=== PATIENT | male | born 1955 | race African-American/Black ===

== ENCOUNTER 2024-03-05 10:30 | Inpatient (IN) | payer MEDICARE, MEDICAID ==
[~2024-03-05] VITALS: Ht 149.9 cm; Wt 58.0 kg
[2024-03-05 11:00] VITALS: PULSE 66; RESP 18; O2SAT 99
[2024-03-05] MEDS: SODIUM CHLORIDE 0.9% 1,000 ML IV ONE (11:25)
[2024-03-05 11:35] LABS: Basophils # (auto) 0 10 ^3/uL (0-0.2); Basophils % (auto) 0.4 % (0.0-2.0); Eosinophils # (auto) 0 10 ^3/uL (0-0.8); Eosinophils % (auto) 0.2 % (0.0-7.0); Hematocrit 41.3 % (41.0-53.0); Hemoglobin 13.7 g/dL (13.5-17.5); Lymphocytes # (auto) 1.3 10 ^3/uL (0.4-5.4); Lymphocytes % (auto) 12.7 % (10.0-50.0); Mean Corpuscular Hemoglobin 26.6 pg (28.0-32.0); Mean Corpuscular Hgb Conc. 33.2 g/dL (32.0-36.0); Monocytes # (auto) 0.7 10 ^3/uL (0-1.3); Monocytes % (auto) 6.3 % (0.0-12.0); Neutrophils # (auto) 8.4 10 ^3/uL (1.6-8.6); Neutrophils % (auto) 80.4 % (37.0-80.0); Nucleated Red Blood Cells % 0.1 %; Red Blood Cells 5.17 10^6/uL (4.5-5.90); Red Cell Distribution Width 16.5 % (11.8-14.3); White Blood Cell 10.5 10^3/uL (4.4-10.8)
[2024-03-05 11:50] LABS: Alanine Aminotransferase 17 U/L (7-40); Alkaline Phosphatase 57 U/L (46-116); Anion Gap 7 (5-15); Aspartate Aminotransferase 15 U/L (13-40); BUN/Creatinine Ratio 16.9 (10.0-20.0); Blood Urea Nitrogen 14 mg/dL (9-23); Calcium 10.1 mg/dL (8.7-10.4); Carbon Dioxide 28 mmol/L (20-30); Chloride 101 mmol/L (98-107); Cholesterol 90 mg/dL (< 200); Glucose 103 mg/dL (74-106); HDL Cholesterol 37 mg/dL (40-59); LDL Cholesterol 42 mg/dL (< 100); Magnesium 1.5 mg/dL (1.6-2.6); Potassium 4.6 mmol/L (3.5-5.1); Sodium 136 mmol/L (136-145); Triglycerides 51 mg/dL (< 150)
[2024-03-05 11:51] LABS: Bilirubin, Total 0.3 mg/dL (0.2-1.0); Total Protein 6.2 g/dL (5.7-8.2)
[2024-03-05] MEDS: ENOXAPARIN SOD 60 MG/0.6 ML SYRINGE SC ONE (12:30)
[2024-03-05] MEDS ORDERED: MORPHINE SULFATE INJ 2 MG/ml SYRG IV PRN (13:45)
[2024-03-05] MEDS ORDERED: MORPHINE SULFATE 4 MG/ML SYR/VIAL IV PRN (13:45)
[2024-03-05] MEDS: MAGNESIUM SULFATE 1GM/100ML 100 ML IV SCH (13:45)
[2024-03-05] MEDS ORDERED: NITROGLYCERIN 0.4 MG SL TAB SL PRN ×2 (13:45)
[2024-03-05] MEDS ORDERED: ONDANSETRON HCL 4 MG/2 ML VIAL IV PRN ×2 (13:45→18:00)
[2024-03-05 14:53] LABS: Magnesium 1.5 mg/dL (1.6-2.6)
[2024-03-05 15:03] LABS: INR 1.13 (0.9-1.15); Partial Thromboplastin Time 28.8 SEC (24.5-34.5); Prothrombin Time 11.9 sec (9.3-11.8)
[2024-03-05 17:28] VITALS: BP 99/63; PULSE 66; RESP 18; TEMP 97.9; O2SAT 100
[2024-03-05] MEDS ORDERED: METF-370 PO (17:47)
[2024-03-05] MEDS ORDERED: LISI20TA56 PO (17:47)
[2024-03-05] MEDS ORDERED: METH-928 PO (17:47)
[2024-03-05] MEDS ORDERED: AMLO1TAB22 PO (17:47)
[2024-03-05] MEDS ORDERED: ATOR10TA52 PO (17:47)
[2024-03-05] MEDS ORDERED: ZOLP10TA6 PO (17:47)
[2024-03-05] MEDS ORDERED: LACT10SO3 PO (17:48)
[2024-03-05] MEDS ORDERED: GABA800T97 PO (17:58)
[2024-03-05] MEDS ORDERED: BACL20TA PO (17:58)
[2024-03-05] MEDS ORDERED: NAPROXEN 500 MG TAB PO SCH (18:00)
[2024-03-05] MEDS: NAPROXEN 500 MG TAB PO ONE (18:31)
[2024-03-05] MEDS ORDERED: MONT-8 PO (18:46)
[2024-03-05] MEDS ORDERED: GABA-1251 PO (18:46)
[2024-03-05] MEDS ORDERED: OMEP1CAP70 PO (18:46)
[2024-03-05] MEDS ORDERED: METF-371 PO (18:46)
[2024-03-05] MEDS ORDERED: CEPH250C2 PO (18:46)
[2024-03-05] MEDS ORDERED: ASPI-543 PO (18:46)
[2024-03-05] MEDS ORDERED: FER325T PO (18:46)
[2024-03-05 20:00] VITALS: PULSE 90; RESP 20; O2SAT 100
[2024-03-05] MEDS: BACLOFEN 10 MG TAB PO SCH (20:49)
[2024-03-05] MEDS: ATORVASTATIN 20 MG TAB PO SCH (20:49)
[2024-03-05] MEDS: MORPHINE SULFATE INJ 2 MG/ml SYRG IV PRN (20:54)
[2024-03-05 21:00] VITALS: BP 178/104; PULSE 61; RESP 18; TEMP 97.7; O2SAT 100
[2024-03-05] MEDS ORDERED: ENOXAPARIN SOD 60 MG/0.6 ML SYRINGE SC SCH (22:00)
[2024-03-06] VITALS (7 sets, daily range): BP systolic 101–180; BP diastolic 62–100; PULSE 60–84; RESP 16–20; TEMP 97.4–98.6; O2SAT 96–100
[2024-03-06] MEDS: ZOLPIDEM TARTRATE 5 MG TAB PO PRN (00:02)
[2024-03-06] MEDS: ACETAMINOPHEN 325 MG TAB PO PRN (00:09)
[2024-03-06 06:21] LABS: Basophils # (auto) 0.1 10 ^3/uL (0-0.2); Basophils % (auto) 0.5 % (0.0-2.0); Eosinophils # (auto) 0.1 10 ^3/uL (0-0.8); Eosinophils % (auto) 0.5 % (0.0-7.0); Hematocrit 43.3 % (41.0-53.0); Hemoglobin 14.1 g/dL (13.5-17.5); Lymphocytes # (auto) 2.3 10 ^3/uL (0.4-5.4); Lymphocytes % (auto) 20.6 % (10.0-50.0); Mean Corpuscular Hemoglobin 26.5 pg (28.0-32.0); Mean Corpuscular Hgb Conc. 32.6 g/dL (32.0-36.0); Mean Corpuscular Volume 81.2 fL (80.0-100.0); Monocytes # (auto) 0.5 10 ^3/uL (0-1.3); Monocytes % (auto) 4.8 % (0.0-12.0); Neutrophils # (auto) 8.1 10 ^3/uL (1.6-8.6); Neutrophils % (auto) 73.6 % (37.0-80.0); Nucleated Red Blood Cells % 0.1 %; Red Blood Cells 5.33 10^6/uL (4.5-5.90); Red Cell Distribution Width 16.1 % (11.8-14.3)
[2024-03-06 06:37] LABS: Alanine Aminotransferase 167 U/L (7-40); Albumin 4.4 g/dL (3.2-4.8); Alkaline Phosphatase 117 U/L (46-116); Anion Gap 5 (5-15); Aspartate Aminotransferase 197 U/L (13-40); BUN/Creatinine Ratio 16.1 (10.0-20.0); Blood Urea Nitrogen 9 mg/dL (9-23); Calcium 10.1 mg/dL (8.7-10.4); Carbon Dioxide 26 mmol/L (20-30); Chloride 101 mmol/L (98-107); Glucose 98 mg/dL (74-106); Potassium 4.4 mmol/L (3.5-5.1); Sodium 132 mmol/L (136-145)
[2024-03-06 06:38] LABS: Bilirubin, Total 0.4 mg/dL (0.2-1.0)
[2024-03-06] MEDS: ASPirin 81 mg TAB PO SCH (08:55)
[2024-03-06] MEDS: DOCUSATE SOD 100 MG CAP PO SCH (08:55)
[2024-03-06] MEDS: ENOXAPARIN SOD 30 MG/0.3 ML SYRINGE SC SCH (08:56)
[2024-03-06] MEDS: NAPROXEN 500 MG TAB PO SCH (08:56)
[2024-03-06] MEDS: GABAPENTIN 400 MG CAP PO SCH (14:44)
[2024-03-06] MEDS: LABETALOL HCL 20 MG/4 ML VL IV PRN (15:54)
[2024-03-06] MEDS: METOPROLOL TARTRATE 50 MG TAB PO SCH (20:58)
[2024-03-07] VITALS (8 sets, daily range): BP systolic 102–164; BP diastolic 64–98; PULSE 51–75; RESP 14–20; TEMP 97.8–99.1; O2SAT 92–100
[2024-03-07 07:50] LABS: Alanine Aminotransferase 337 U/L (7-40); Albumin 4.1 g/dL (3.2-4.8); Alkaline Phosphatase 133 U/L (46-116); Anion Gap 10 (5-15); Aspartate Aminotransferase 187 U/L (13-40); BUN/Creatinine Ratio 17.8 (10.0-20.0); Blood Urea Nitrogen 8 mg/dL (9-23); Calcium 9.8 mg/dL (8.7-10.4); Carbon Dioxide 20 mmol/L (20-30); Chloride 101 mmol/L (98-107); Glucose 91 mg/dL (74-106); Potassium 4.3 mmol/L (3.5-5.1); Sodium 131 mmol/L (136-145)
[2024-03-07 07:51] LABS: Bilirubin, Total 0.4 mg/dL (0.2-1.0); Total Protein 6.5 g/dL (5.7-8.2)
[2024-03-07] MEDS ORDERED: ZOLPIDEM TARTRATE 5 MG TAB PO PRN (13:15)
[2024-03-07] MEDS ORDERED: LACT10SO3 PO (14:08)
[2024-03-07] MEDS: KETOROLAC TROMETH 30 MG/ML 1ML VIAL IV ONE (14:51)
[2024-03-07] MEDS: [UNRECOGNIZED DRUG - OTHER] PO SCH (22:00)
[2024-03-07] MEDS: METHENAMINE HIPPURATE 1 GM PO SCH (22:00)
[2024-03-07] MEDS: LACTULOSE 20Gm/30ML SOLN PO SCH (22:46)
[2024-03-07] MEDS: ZOLPIDEM TARTRATE 5 MG TAB PO PRN (23:12)
[2024-03-08] VITALS (8 sets, daily range): BP systolic 0–162; BP diastolic 72–98; PULSE 50–78; RESP 15–20; TEMP 97.4–98.3; O2SAT 95–100
[2024-03-08 09:46] LABS: Hepatitis B Surface Antigen Negative (Negative)
[2024-03-08] MEDS: MONTELUKAST SODIUM 10 MG TAB PO SCH (10:07)
[2024-03-08 10:08] LABS: Hepatitis C Antibody Negative (Negative)
[2024-03-08 11:56] LABS: Alanine Aminotransferase 305 U/L (7-40); Albumin 3.9 g/dL (3.2-4.8); Alkaline Phosphatase 125 U/L (46-116); Anion Gap 4 (5-15); Aspartate Aminotransferase 105 U/L (13-40); Blood Urea Nitrogen 9 mg/dL (9-23); Calcium 9.8 mg/dL (8.7-10.4); Carbon Dioxide 26 mmol/L (20-30); Chloride 99 mmol/L (98-107); Glucose 154 mg/dL (74-106); Potassium 4.3 mmol/L (3.5-5.1); Sodium 129 mmol/L (136-145)
[2024-03-08 11:57] LABS: Bilirubin, Total 0.3 mg/dL (0.2-1.0); Total Protein 6.4 g/dL (5.7-8.2)
[2024-03-08] MEDS: FUROSEMIDE 20 MG TAB PO ONE (15:42)
[2024-03-08] MEDS ORDERED: GABA800T97 PO (16:39)
[2024-03-08] MEDS ORDERED: ALBU108A5 INH (16:43)
[2024-03-08 19:35] LABS: Urine Bacteria FEW /hpf (None Seen); Urine Blood TRACE /uL (Negative); Urine Clarity Turbid (Clear); Urine Color Colorless (Yellow); Urine Protein, UAD Negative (Negative); Urine Specific Gravity 1.003 (1.001-1.035); Urine Urobilinogen Normal (Negative); Urine WBC 51 /hpf (0 - 3)
[2024-03-08] MEDS: METOPROLOL TARTRATE 25 MG TAB PO SCH (22:42)
[2024-03-09] VITALS (9 sets, daily range): BP systolic 107–160; BP diastolic 50–91; PULSE 45–63; RESP 17–20; TEMP 97.1–98.4; O2SAT 95–100
[2024-03-09] MEDS ORDERED: LORazepam 2MG/ML-1ML VIAL IV ONE (11:45)
[2024-03-09] MEDS: traMADol HCL 50 MG TAB PO PRN (16:24)
[2024-03-09] MEDS: DOCUSATE SOD 100 MG CAP PO SCH (22:13)
[2024-03-10] VITALS (8 sets, daily range): BP systolic 100–160; BP diastolic 52–87; PULSE 43–61; RESP 17–20; TEMP 97.6–98.8; O2SAT 96–100
[2024-03-10 07:01] LABS: Basophils # (auto) 0 10 ^3/uL (0-0.2); Basophils % (auto) 0.4 % (0.0-2.0); Eosinophils # (auto) 0.1 10 ^3/uL (0-0.8); Eosinophils % (auto) 1.8 % (0.0-7.0); Hematocrit 36.9 % (41.0-53.0); Hemoglobin 12.1 g/dL (13.5-17.5); Lymphocytes # (auto) 1.9 10 ^3/uL (0.4-5.4); Lymphocytes % (auto) 36.5 % (10.0-50.0); Mean Corpuscular Hemoglobin 26.5 pg (28.0-32.0); Mean Corpuscular Hgb Conc. 32.7 g/dL (32.0-36.0); Monocytes # (auto) 0.6 10 ^3/uL (0-1.3); Monocytes % (auto) 11.1 % (0.0-12.0); Neutrophils # (auto) 2.6 10 ^3/uL (1.6-8.6); Neutrophils % (auto) 50.2 % (37.0-80.0); Nucleated Red Blood Cells % 0.1 %; Red Blood Cells 4.56 10^6/uL (4.5-5.90); Red Cell Distribution Width 15.8 % (11.8-14.3); White Blood Cell 5.1 10^3/uL (4.4-10.8)
[2024-03-10 07:34] LABS: Alanine Aminotransferase 480 U/L (7-40); Alkaline Phosphatase 210 U/L (46-116); Anion Gap 8 (5-15); BUN/Creatinine Ratio 12.2 (10.0-20.0); Blood Urea Nitrogen 5 mg/dL (9-23); Calcium 9.9 mg/dL (8.7-10.4); Carbon Dioxide 25 mmol/L (20-30); Chloride 100 mmol/L (98-107); Glucose 90 mg/dL (74-106); Potassium 4.2 mmol/L (3.5-5.1); Sodium 133 mmol/L (136-145)
[2024-03-10 07:35] LABS: Aspartate Aminotransferase 441 U/L (13-40); Bilirubin, Total 0.2 mg/dL (0.2-1.0); Total Protein 6.8 g/dL (5.7-8.2)
[2024-03-10] MEDS: cefTRIAXone 1GM/50ML D5W 50 ML IV SCH (09:20)
[2024-03-10] MEDS: LISINOPRIL 5 MG TAB PO SCH (09:22)
[2024-03-10] MEDS: HYDROcodone-ACET 5/325MG TAB PO ONE (14:16)
[2024-03-11] VITALS (9 sets, daily range): BP systolic 120–181; BP diastolic 11–93; PULSE 40–77; RESP 18–20; TEMP 97.8–98.8; O2SAT 95–100
[2024-03-11] MEDS ORDERED: CIP500T PO (13:35)
[2024-03-12] VITALS (8 sets, daily range): BP systolic 99–159; BP diastolic 57–85; PULSE 44–109; RESP 15–18; TEMP 36.6; O2SAT 95–100
[2024-03-12] MEDS: hydrALAZINE HCL 20 MG/ML VL IV PRN (00:47)
[2024-03-12 15:11] LABS: Chloride 96 mmol/L (98-107); Potassium 4.1 mmol/L (3.5-5.1); Sodium 130 mmol/L (136-145)
[2024-03-12 15:14] LABS: Anion Gap 6 (5-15); Calcium 10.1 mg/dL (8.7-10.4); Carbon Dioxide 28 mmol/L (20-30)
[2024-03-12 15:19] LABS: Alkaline Phosphatase 159 U/L (46-116); BUN/Creatinine Ratio 14.1 (10.0-20.0); Blood Urea Nitrogen 9 mg/dL (9-23); Glucose 121 mg/dL (74-106)
[2024-03-12 15:21] LABS: Alanine Aminotransferase 224 U/L (7-40); Albumin 4.2 g/dL (3.2-4.8); Aspartate Aminotransferase 35 U/L (13-40); Bilirubin, Total 0.2 mg/dL (0.2-1.0); Creatine Kinase IFCC 39 U/L (46-171); Total Protein 7.2 g/dL (5.7-8.2)
== END 2024-03-12 18:10 | disposition home or self-care (01) | DRG 73 ==
LOC: EDBD 10:30 → ER 10:30 → TELE 13:45 → TELE-EAST 16:48
PROVIDERS: ADMIT Nurse Practitioner Family; ATTEND Internal Medicine
DX: G90.8 Other disorders of autonomic nervous system (principal); G82.50 Quadriplegia, unspecified; I21.A1 Myocardial infarction type 2; N39.0 Urinary tract infection, site not specified; J45.909 Unspecified asthma, uncomplicated; E78.5 Hyperlipidemia, unspecified; E83.42 Hypomagnesemia; G89.29 Other chronic pain; M62.830 Muscle spasm of back; R74.01 Elevation of levels of liver transaminase levels; R00.1 Bradycardia, unspecified; G95.89 Other specified diseases of spinal cord; I95.9 Hypotension, unspecified; G47.00 Insomnia, unspecified; M54.50 Low back pain, unspecified; I44.0 Atrioventricular block, first degree; Z88.2 Allergy status to sulfonamides; Z79.899 Other long term (current) drug therapy; Z89.511 Acquired absence of right leg below knee; Z89.512 Acquired absence of left leg below knee; Z93.3 Colostomy status; Z89.611 Acquired absence of right leg above knee; Z89.612 Acquired absence of left leg above knee; Z93.0 Tracheostomy status; Z79.84 Long term (current) use of oral hypoglycemic drugs
CPT/HCPCS: 36415; 70450; 70551; 71045; 74018; 74176; 76705; 80053; 80061; 81001; 82550; 82962; 83690; 83735; 84484; 85025; 85379; 85610; 85730; 86803; 87086; 87340; 93005; 93306; 93886; 95819; 96361; 96365; 96372; 97110; 97530; 99291; G0378; J1885

== ENCOUNTER 2024-05-09 23:19 | Inpatient (IN) | payer MEDICARE, MEDICAID ==
[~2024-05-09] VITALS: Ht 121.9 cm; Wt 50.1 kg
[~2024-05-09 23:19] MED LIST: ALBU108A5 INH; AMLO1TAB22 PO; ASPI-543 PO; ATOR10TA52 PO; BACL20TA PO; CEPH250C2 PO; CIP500T PO; FER325T PO; GABA800T97 PO; LACT10SO3 PO; LISI20TA56 PO; METF-371 PO; METH-928 PO; MONT-8 PO; OMEP1CAP70 PO; ZOLP10TA6 PO
[2024-05-09] MEDS: ROCURONIUM 10MG/ML 10ML VIAL IV ONE (23:30)
[2024-05-09] MEDS: ONDANSETRON HCL 4 MG/2 ML VIAL IV ONE (23:30)
[2024-05-09] MEDS ORDERED: NOREPINEPHRINE 8 MG/250ML KIT 250 ML IV SCH (23:30)
[2024-05-09] MEDS: ETOMIDATE (2MG/ML) 20ML VIAL IV ONE (23:38)
[2024-05-09] MEDS: MIDAZOLAM DRIP 50 mg/50mL 50 ML IV ONE (23:39)
[2024-05-09] MEDS: NOREPINEPHRINE 8 MG/250ML KIT 250 ML IV ONE (23:40)
[2024-05-09 23:45] LABS: Basophils # (auto) 0 10 ^3/uL (0-0.2); Basophils % (auto) 0.1 % (0.0-2.0); Eosinophils # (auto) 0.1 10 ^3/uL (0-0.8); Eosinophils % (auto) 1.1 % (0.0-7.0); Hematocrit 38.8 % (41.0-53.0); Hemoglobin 13.2 g/dL (13.5-17.5); Lymphocytes # (auto) 2.2 10 ^3/uL (0.4-5.4); Lymphocytes % (auto) 24.9 % (10.0-50.0); Mean Corpuscular Hgb Conc. 33.9 g/dL (32.0-36.0); Mean Corpuscular Volume 79.7 fL (80.0-100.0); Monocytes # (auto) 0.5 10 ^3/uL (0-1.3); Monocytes % (auto) 5.5 % (0.0-12.0); Neutrophils % (auto) 68.4 % (37.0-80.0); Nucleated Red Blood Cells % 0.1 %; Platelet Count (auto) 224 10^3/uL (140-450); Red Blood Cells 4.87 10^6/uL (4.5-5.90); Red Cell Distribution Width 17.1 % (11.8-14.3); White Blood Cell 8.8 10^3/uL (4.4-10.8)
[2024-05-09] MEDS: NOREPINEPHRINE 8 MG/250ML KIT 250 ML IV SCH (23:45)
[2024-05-09] MEDS: MIDAZOLAM DRIP 50 mg/50mL 50 ML IV SCH (23:45)
[2024-05-09] MEDS: CALCIUM GLUC 1,000mg/50ml-NS 100 ML IV ONE (23:47)
[2024-05-09] MEDS: ATROPINE SULF 0.5 MG/5ML SYR ONE (23:53)
[2024-05-09] MEDS: SODIUM CHLORIDE 0.9% 1,000 ML IV ONE (23:53)
[2024-05-09] MEDS: ATROPINE SULF 1 MG/10ml SYR IV ONE (23:53)
[2024-05-10] VITALS (49 sets, daily range): BP systolic 89–174; BP diastolic 56–90; PULSE 45–150; RESP 12–19; TEMP 98.1–101.3; O2SAT 93–100
[2024-05-10] MEDS: CALCIUM GLUC 1,000mg/50ml-NS 50 ML IV SCH
[2024-05-10 00:02] LABS: Alanine Aminotransferase 19 U/L (7-40); Albumin 3.9 g/dL (3.2-4.8); Alkaline Phosphatase 53 U/L (46-116); Anion Gap 6 (5-15); Aspartate Aminotransferase 13 U/L (13-40); BUN/Creatinine Ratio 17.3 (10.0-20.0); Bilirubin, Total 0.2 mg/dL (0.2-1.0); Blood Urea Nitrogen 26 mg/dL (9-23); Calcium 10.1 mg/dL (8.7-10.4); Carbon Dioxide 25 mmol/L (20-30); Chloride 105 mmol/L (98-107); Glucose 112 mg/dL (74-106); Lipase 63 U/L (12-53); Potassium 4.6 mmol/L (3.5-5.1); Sodium 136 mmol/L (136-145); Total Protein 6.5 g/dL (5.7-8.2)
[2024-05-10] MEDS ORDERED: NOREPINEPHRINE 8 MG/250ML KIT 250 ML IV SCH (00:15)
[2024-05-10] MEDS: CEFEPIME 2GM/50ML NS 50 ML IV ONE (00:15)
[2024-05-10] MEDS ORDERED: CALCIUM GLUC 1,000mg/50ml-NS 50 ML IV ONE (00:15)
[2024-05-10 01:04] LABS: Base Excess -2.7 mmol/L (-2.0-3.0)
[2024-05-10 02:54] LABS: Urine Bacteria FEW /hpf (None Seen); Urine Blood Negative /uL (Negative); Urine Clarity Turbid (Clear); Urine Color Light-Yellow (Yellow); Urine Mucus FEW (None Seen); Urine Protein, UAD TRACE (Negative); Urine Specific Gravity 1.013 (1.001-1.035); Urine Urobilinogen Normal (Negative); Urine WBC 191 /hpf (0 - 3); Urine WBC Clumps PRESENT /hpf (None Seen); Urine pH 5.5 (5.0-9.0)
[2024-05-10] MEDS: IOHEXOL 350 MG/ML 100ML IJ ONE (03:02)
[2024-05-10 03:04] LABS: Amphetamine Screen, Urine Neg (NEGATIVE); Barbiturate Scree,Urine Neg (NEGATIVE); Benzodiazephine Screen, Urine Pos (NEGATIVE); Cannabinoid Screen, Urine Neg (NEGATIVE); Cocaine Screen, Urine Neg (NEGATIVE); Opiate Scree,Urine Neg (NEGATIVE); Phencyclidine Screen, Urine Neg (NEGATIVE)
[2024-05-10] MEDS: DOPamine 1600MCG/ML D5W 250 ML IV ONE (04:15)
[2024-05-10] MEDS ORDERED: ONDANSETRON HCL 4 MG/2 ML VIAL IV PRN (06:00)
[2024-05-10] MEDS ORDERED: NITROGLYCERIN 0.4 MG SL TAB SL PRN (06:00)
[2024-05-10 06:46] LABS: Base Excess -0.4 mmol/L (-2.0-3.0)
[2024-05-10] MEDS: NOREPINEPHRINE 8 MG/250ML KIT 250 ML IV ONE (08:02)
[2024-05-10] MEDS: hydrALAZINE HCL 20 MG/ML VL IV ONE (08:02)
[2024-05-10] MEDS: hydrALAZINE HCL 20 MG/ML VL ONE (08:02)
[2024-05-10] MEDS: SODIUM BICARB 8.4% 50Meq/50ml SYR Vial IV ONE (08:03)
[2024-05-10] MEDS: NOREPINEPHRINE 8 MG/250ML KIT 250 ML IV SCH (08:15)
[2024-05-10 08:40] LABS: Chloride 107 mmol/L (98-107); Potassium 4.2 mmol/L (3.5-5.1); Sodium 142 mmol/L (136-145)
[2024-05-10 08:41] LABS: Anion Gap 10 (5-15); Calcium 10.1 mg/dL (8.7-10.4); Carbon Dioxide 25 mmol/L (20-30)
[2024-05-10 08:46] LABS: BUN/Creatinine Ratio 23.7 (10.0-20.0); Blood Urea Nitrogen 22 mg/dL (9-23); Glucose 151 mg/dL (74-106)
[2024-05-10] MEDS: cefTRIAXone 1GM/50ML D5W 50 ML IV SCH (09:12)
[2024-05-10] MEDS: ENOXAPARIN SOD 40 MG/0.4 ML SYRINGE SC SCH (10:10)
[2024-05-10] MEDS: ACETAMINOPHEN 650 mg PER 20.3 mL UD GT ONE (11:36)
[2024-05-10] MEDS: fentaNYL Drip 2500mCg/250mlNS 250 ML IV SCH (13:00)
[2024-05-10] MEDS ORDERED: VANCOMYCIN PER PHARMACY 0 MG IV SCH (13:00)
[2024-05-10] MEDS: VANCOMYCIN 1GM/250ML 200 ML IV ONE (13:33)
[2024-05-10] MEDS: SODIUM CHLORIDE 0.9% 1,000 ML IV SCH (13:49)
[2024-05-10] MEDS: MEROPENEM 1GM IVPB 50 ML IV ONE (14:03)
[2024-05-10] MEDS: MEROPENEM 1GM IVPB 50 ML IV SCH (14:43)
[2024-05-10] MEDS: ACETAMINOPHEN 650 mg PER 20.3 mL UD GT PRN (16:46)
[2024-05-10] MEDS: DOPamine 1600MCG/ML D5W 250 ML IV SCH (17:15)
[2024-05-10] MEDS: ACCU-CHEK COMFORT CURVE STRIP VI SCH (18:15)
[2024-05-10] MEDS: InsuLIN REG 1unit/0.01ml Soln (100units/ml) SC SCH (18:18)
[2024-05-10] MEDS ORDERED: ASPirin 81 mg TAB PO ONE (18:30)
[2024-05-10] MEDS ORDERED: ATORVASTATIN 20 MG TAB PO SCH (22:00)
[2024-05-11] VITALS (106 sets, daily range): BP systolic 85–181; BP diastolic 53–94; PULSE 48–112; RESP 17–20; TEMP 97.5–100.4; O2SAT 97–100
[2024-05-11 04:29] LABS: Basophils # (auto) 0 10 ^3/uL (0-0.2); Eosinophils # (auto) 0.1 10 ^3/uL (0-0.8); Eosinophils % (auto) 1.1 % (0.0-7.0); Lymphocytes # (auto) 1.6 10 ^3/uL (0.4-5.4); Monocytes # (auto) 0.6 10 ^3/uL (0-1.3); Neutrophils # (auto) 6.8 10 ^3/uL (1.6-8.6); White Blood Cell 9.1 10^3/uL (4.4-10.8)
[2024-05-11 04:32] LABS: Basophils % (auto) 0.2 % (0.0-2.0); Hematocrit 35.2 % (41.0-53.0); Hemoglobin 12.1 g/dL (13.5-17.5); Lymphocytes % (auto) 17.3 % (10.0-50.0); Mean Corpuscular Hemoglobin 27.1 pg (28.0-32.0); Mean Corpuscular Hgb Conc. 34.4 g/dL (32.0-36.0); Mean Corpuscular Volume 78.8 fL (80.0-100.0); Monocytes % (auto) 6.7 % (0.0-12.0); Neutrophils % (auto) 74.7 % (37.0-80.0); Platelet Count (auto) 245 10^3/uL (140-450); Red Blood Cells 4.46 10^6/uL (4.5-5.90); Red Cell Distribution Width 17.3 % (11.8-14.3)
[2024-05-11 04:33] LABS: Alanine Aminotransferase 17 U/L (7-40); Albumin 3.8 g/dL (3.2-4.8); Alkaline Phosphatase 47 U/L (46-116); Anion Gap 9 (5-15); Aspartate Aminotransferase 10 U/L (13-40); BUN/Creatinine Ratio 31.5 (10.0-20.0); Bilirubin, Total 0.5 mg/dL (0.2-1.0); Blood Urea Nitrogen 17 mg/dL (9-23); Calcium 9.5 mg/dL (8.7-10.4); Carbon Dioxide 24 mmol/L (20-30); Chloride 111 mmol/L (98-107); Glucose 100 mg/dL (74-106); Potassium 3.6 mmol/L (3.5-5.1); Sodium 144 mmol/L (136-145); Total Protein 6.3 g/dL (5.7-8.2)
[2024-05-11 04:42] LABS: INR 1.11 (0.9-1.15); Partial Thromboplastin Time 33.4 SEC (24.5-34.5); Prothrombin Time 11.7 sec (9.3-11.8)
[2024-05-11 07:43] LABS: Base Excess -1.2 mmol/L (-2.0-3.0)
[2024-05-11] MEDS ORDERED: GABA-1250 PO (09:22)
[2024-05-11] MEDS ORDERED: METF-370 PO (09:23)
[2024-05-11] MEDS ORDERED: ASPirin 81 mg TAB PO SCH (10:00)
[2024-05-11] MEDS: PANTOPRAZOLE 40 MG/10 ML VIAL INJ IV SCH (10:01)
[2024-05-11] MEDS ORDERED: VANCOMYCIN 1GM/250ML 200 ML IV SCH (11:00)
[2024-05-11] MEDS: VANCOMYCIN 750mg/150ml 150 ML IV SCH (13:05)
[2024-05-11] MEDS: ALBUTEROL SULF 2.5 MG/0.5ML(0.5%) NEB SOLN NEB PRN (20:14)
[2024-05-11 21:32] LABS: % Iron Saturation 12.7 % (20-55)
[2024-05-12] VITALS (107 sets, daily range): BP systolic 78–194; BP diastolic 46–125; PULSE 55–123; RESP 18–33; TEMP 97.7–99.7; O2SAT 91–100
[2024-05-12 03:52] LABS: Basophils # (auto) 0 10 ^3/uL (0-0.2); Basophils % (auto) 0.3 % (0.0-2.0); Eosinophils # (auto) 0.2 10 ^3/uL (0-0.8); Hemoglobin 11.6 g/dL (13.5-17.5); Monocytes # (auto) 0.4 10 ^3/uL (0-1.3); White Blood Cell 6.3 10^3/uL (4.4-10.8)
[2024-05-12 03:57] LABS: Eosinophils % (auto) 2.5 % (0.0-7.0); Hematocrit 34.4 % (41.0-53.0); Lymphocytes # (auto) 1.7 10 ^3/uL (0.4-5.4); Lymphocytes % (auto) 26.6 % (10.0-50.0); Mean Corpuscular Hemoglobin 26.8 pg (28.0-32.0); Mean Corpuscular Hgb Conc. 33.8 g/dL (32.0-36.0); Mean Corpuscular Volume 79.3 fL (80.0-100.0); Monocytes % (auto) 5.9 % (0.0-12.0); Neutrophils # (auto) 4.1 10 ^3/uL (1.6-8.6); Neutrophils % (auto) 64.7 % (37.0-80.0); Platelet Count (auto) 218 10^3/uL (140-450); Red Blood Cells 4.33 10^6/uL (4.5-5.90); Red Cell Distribution Width 16.5 % (11.8-14.3)
[2024-05-12 04:02] LABS: Chloride 112 mmol/L (98-107); Potassium 3.7 mmol/L (3.5-5.1); Sodium 144 mmol/L (136-145)
[2024-05-12 04:03] LABS: Anion Gap 9 (5-15); Calcium 9.6 mg/dL (8.7-10.4); Carbon Dioxide 23 mmol/L (20-30)
[2024-05-12 04:08] LABS: Glucose 64 mg/dL (74-106)
[2024-05-12 04:09] LABS: BUN/Creatinine Ratio 28.9 (10.0-20.0); Blood Urea Nitrogen 13 mg/dL (9-23); Magnesium 1.6 mg/dL (1.6-2.6)
[2024-05-12 04:11] LABS: Phosphorus 2.7 mg/dL (2.4-5.1)
[2024-05-12] MEDS: DEXTROSE (50%) 50ML SYRG IV PRN (05:28)
[2024-05-12] MEDS: MAGNESIUM SULFATE 1GM/100ML 100 ML IV SCH (07:35)
[2024-05-12] MEDS ORDERED: MAGNESIUM SULFATE 1GM/100ML 100 ML IV SCH (08:00)
[2024-05-12 09:51] LABS: Base Excess -3.4 mmol/L (-2.0-3.0)
[2024-05-12 09:56] LABS: Base Excess -1.9 mmol/L (-2.0-3.0)
[2024-05-12] MEDS: Jevity 1.2 Cal/Fiber 1 Liter GT SCH (10:59)
[2024-05-12] MEDS: FUROSEMIDE 20 MG/2 ML VIAL IV ONE (12:00)
[2024-05-13] VITALS (80 sets, daily range): BP systolic 99–208; BP diastolic 52–122; PULSE 56–124; RESP 10–28; TEMP 98.4–100.4; O2SAT 96–100
[2024-05-13 00:53] LABS: Chloride 112 mmol/L (98-107); Potassium 4.2 mmol/L (3.5-5.1); Sodium 143 mmol/L (136-145)
[2024-05-13 00:54] LABS: Anion Gap 3 (5-15); Calcium 9.3 mg/dL (8.7-10.4); Carbon Dioxide 28 mmol/L (20-30)
[2024-05-13 00:59] LABS: BUN/Creatinine Ratio 23.5 (10.0-20.0); Blood Urea Nitrogen 12 mg/dL (9-23); Glucose 121 mg/dL (74-106)
[2024-05-13 04:20] LABS: Basophils # (auto) 0 10 ^3/uL (0-0.2); Eosinophils # (auto) 0.2 10 ^3/uL (0-0.8); Eosinophils % (auto) 3.3 % (0.0-7.0); Lymphocytes % (auto) 20.9 % (10.0-50.0); Monocytes # (auto) 0.5 10 ^3/uL (0-1.3); Monocytes % (auto) 6.9 % (0.0-12.0); Neutrophils # (auto) 5.1 10 ^3/uL (1.6-8.6)
[2024-05-13 04:24] LABS: Basophils % (auto) 0.2 % (0.0-2.0); Hematocrit 32.3 % (41.0-53.0); Hemoglobin 11.1 g/dL (13.5-17.5); Lymphocytes # (auto) 1.6 10 ^3/uL (0.4-5.4); Mean Corpuscular Hemoglobin 27.3 pg (28.0-32.0); Mean Corpuscular Hgb Conc. 34.3 g/dL (32.0-36.0); Mean Corpuscular Volume 79.6 fL (80.0-100.0); Neutrophils % (auto) 68.7 % (37.0-80.0); Platelet Count (auto) 217 10^3/uL (140-450); Red Blood Cells 4.06 10^6/uL (4.5-5.90); Red Cell Distribution Width 17.4 % (11.8-14.3); White Blood Cell 7.5 10^3/uL (4.4-10.8)
[2024-05-13 04:34] LABS: Anion Gap 4 (5-15); Carbon Dioxide 26 mmol/L (20-30); Chloride 113 mmol/L (98-107); Potassium 4.1 mmol/L (3.5-5.1); Sodium 143 mmol/L (136-145)
[2024-05-13 04:35] LABS: Calcium 9.5 mg/dL (8.7-10.4)
[2024-05-13 04:40] LABS: Glucose 96 mg/dL (74-106)
[2024-05-13 04:41] LABS: BUN/Creatinine Ratio 25.5 (10.0-20.0); Blood Urea Nitrogen 13 mg/dL (9-23); Magnesium 1.9 mg/dL (1.6-2.6)
[2024-05-13 04:43] LABS: Phosphorus 2.8 mg/dL (2.4-5.1)
[2024-05-13] MEDS: hydrALAZINE HCL 20 MG/ML VL IV PRN (05:39)
[2024-05-13 08:21] LABS: Base Excess -3.9 mmol/L (-2.0-3.0)
[2024-05-13] MEDS: LORazepam 2MG/ML-1ML VIAL IV ONE (09:31)
[2024-05-13] MEDS ORDERED: LABETALOL HCL 20 MG/4 ML VL IV PRN (10:15)
[2024-05-13] MEDS: LABETALOL HCL 20 MG/4 ML VL IV PRN (10:28)
[2024-05-13] MEDS: FUROSEMIDE 20 MG/2 ML VIAL IV ONE (13:07)
[2024-05-13] MEDS ORDERED: MAGNESIUM SULFATE 1GM/100ML 100 ML IV ONE (13:30)
[2024-05-13] MEDS ORDERED: AMIODARONE BOLUS KIT 100 ML IV ONE (13:30)
[2024-05-13] MEDS ORDERED: AMIODARONE 450mg/250ml AE 250 ML IV SCH ×2 (13:45→19:45)
[2024-05-13] MEDS: ALBUTEROL SULF 2.5 MG/0.5ML(0.5%) NEB SOLN NEB PRN (16:39)
[2024-05-13] MEDS: ACETAMINOPHEN 650 mg PER 20.3 mL UD GT PRN (22:21)
[2024-05-13] MEDS: MELATONIN 5 MG TAB PO ONE (22:21)
[2024-05-13] MEDS: BACLOFEN 10 MG TAB PO PRN (22:21)
[2024-05-14] VITALS (42 sets, daily range): BP systolic 89–199; BP diastolic 48–137; PULSE 68–163; RESP 11–37; TEMP 98.8–103.2; O2SAT 95–100
[2024-05-14 03:42] LABS: Base Excess -2.8 mmol/L (-2.0-3.0)
[2024-05-14 04:37] LABS: Basophils # (auto) 0 10 ^3/uL (0-0.2); Basophils % (auto) 0.3 % (0.0-2.0); Eosinophils # (auto) 0 10 ^3/uL (0-0.8); Eosinophils % (auto) 0.3 % (0.0-7.0); Lymphocytes # (auto) 0.8 10 ^3/uL (0.4-5.4); Monocytes # (auto) 0.5 10 ^3/uL (0-1.3); Neutrophils # (auto) 7.2 10 ^3/uL (1.6-8.6); Red Blood Cells 4.37 10^6/uL (4.5-5.90)
[2024-05-14 04:40] LABS: Hematocrit 34.6 % (41.0-53.0); Hemoglobin 11.5 g/dL (13.5-17.5); Lymphocytes % (auto) 9.4 % (10.0-50.0); Mean Corpuscular Hemoglobin 26.3 pg (28.0-32.0); Mean Corpuscular Hgb Conc. 33.3 g/dL (32.0-36.0); Mean Corpuscular Volume 79.1 fL (80.0-100.0); Monocytes % (auto) 5.6 % (0.0-12.0); Neutrophils % (auto) 84.4 % (37.0-80.0); Platelet Count (auto) 240 10^3/uL (140-450); Red Cell Distribution Width 16.9 % (11.8-14.3); White Blood Cell 8.5 10^3/uL (4.4-10.8)
[2024-05-14 04:57] LABS: Alanine Aminotransferase 208 U/L (7-40); Alkaline Phosphatase 130 U/L (46-116); Anion Gap 10 (5-15); BUN/Creatinine Ratio 21.1 (10.0-20.0); Blood Urea Nitrogen 12 mg/dL (9-23); Carbon Dioxide 24 mmol/L (20-31); Chloride 107 mmol/L (98-107); Glucose 104 mg/dL (74-106); Magnesium 1.7 mg/dL (1.6-2.6); Potassium 3.4 mmol/L (3.5-5.1); Sodium 141 mmol/L (136-145)
[2024-05-14 04:58] LABS: Albumin 4.1 g/dL (3.2-4.8); Aspartate Aminotransferase 74 U/L (13-40); Bilirubin, Total 0.5 mg/dL (0.2-1.0); Phosphorus 2.1 mg/dL (2.4-5.1); Total Protein 6.8 g/dL (5.7-8.2)
[2024-05-14] MEDS: POTASSIUM CHL 20MEQ/100ML 100 ML IV ONE (06:07)
[2024-05-14] MEDS: LEVALBUTEROL HCL 1.25 MG/3 ML NEB NEB SCH (06:09)
[2024-05-14] MEDS: IPRATROPIUM BROM 0.5 MG/2.5ML INH SOL NEB SCH (06:10)
[2024-05-14] MEDS: ACETYLCYSTEINE 20%(200MG/ML) SOL 4ML NEB SCH ×2 (06:10→14:55)
[2024-05-14] MEDS: MAGNESIUM SULFATE 1GM/100ML 100 ML IV ONE (08:42)
[2024-05-14 09:18] LABS: Base Excess -0.4 mmol/L (-2.0-3.0)
[2024-05-14] MEDS: FUROSEMIDE 20 MG/2 ML VIAL IV SCH ×2 (11:32→17:31)
[2024-05-14 11:37] LABS: Free T3 2.11 pg/mL (2.3-4.2)
[2024-05-14 12:06] LABS: Free T4 (Free Thyroxine) 1.18 ng/dL (0.89-1.76)
[2024-05-14] MEDS: SACUBITRIL-VALSARTAN 24mg/26mg TAB PO SCH (12:19)
[2024-05-14] MEDS: METOPROLOL TARTRATE 25 MG TAB PO SCH (12:20)
[2024-05-14] MEDS: ACETAMINOPHEN IV 1000 MG/100ML (10MG/ML) IV PRN (16:22)
[2024-05-14] MEDS ORDERED: MELATONIN 5 MG TAB PO ONE (22:00)
[2024-05-15] VITALS (42 sets, daily range): BP systolic 80–225; BP diastolic 45–144; PULSE 58–126; RESP 16–42; TEMP 98.7–100.8; O2SAT 84–100
[2024-05-15 07:21] LABS: Basophils # (auto) 0 10 ^3/uL (0-0.2); Basophils % (auto) 0.6 % (0.0-2.0); Eosinophils # (auto) 0.1 10 ^3/uL (0-0.8); Lymphocytes % (auto) 18.1 % (10.0-50.0); Mean Corpuscular Volume 78.6 fL (80.0-100.0); Monocytes # (auto) 0.5 10 ^3/uL (0-1.3); Nucleated Red Blood Cells % 0.1 %
[2024-05-15 07:23] LABS: Eosinophils % (auto) 1.5 % (0.0-7.0); Hematocrit 34.8 % (41.0-53.0); Hemoglobin 11.8 g/dL (13.5-17.5); Lymphocytes # (auto) 1.5 10 ^3/uL (0.4-5.4); Mean Corpuscular Hemoglobin 26.5 pg (28.0-32.0); Mean Corpuscular Hgb Conc. 33.7 g/dL (32.0-36.0); Monocytes % (auto) 5.7 % (0.0-12.0); Neutrophils # (auto) 6.2 10 ^3/uL (1.6-8.6); Neutrophils % (auto) 74.1 % (37.0-80.0); Platelet Count (auto) 231 10^3/uL (140-450); Red Blood Cells 4.44 10^6/uL (4.5-5.90); Red Cell Distribution Width 16.9 % (11.8-14.3); White Blood Cell 8.3 10^3/uL (4.4-10.8)
[2024-05-15 07:48] LABS: Alanine Aminotransferase 127 U/L (7-40); Alkaline Phosphatase 108 U/L (46-116); Anion Gap 10 (5-15); Aspartate Aminotransferase 39 U/L (13-40); BUN/Creatinine Ratio 18.2 (10.0-20.0); Blood Urea Nitrogen 8 mg/dL (9-23); Calcium 9.7 mg/dL (8.7-10.4); Carbon Dioxide 26 mmol/L (20-31); Chloride 103 mmol/L (98-107); Glucose 101 mg/dL (74-106); Magnesium 1.6 mg/dL (1.6-2.6); Potassium 3.4 mmol/L (3.5-5.1); Sodium 139 mmol/L (136-145)
[2024-05-15 07:49] LABS: Bilirubin, Total 0.6 mg/dL (0.2-1.0); Total Protein 6.7 g/dL (5.7-8.2)
[2024-05-15] MEDS: ACETAMINOPHEN 325 MG TAB PO PRN (09:24)
[2024-05-15] MEDS: VANCOMYCIN 750mg/150ml 150 ML IV SCH (09:32)
[2024-05-15] MEDS: MAGNESIUM SULFATE 1GM/100ML 100 ML IV SCH (18:03)
[2024-05-15] MEDS: MORPHINE SULFATE INJ 2 MG/ml SYRG IV PRN (19:53)
[2024-05-16] VITALS (40 sets, daily range): BP systolic 82–200; BP diastolic 50–102; PULSE 62–123; RESP 14–43; TEMP 97.9–99.3; O2SAT 97–100
[2024-05-16 05:59] LABS: Eosinophils # (auto) 0.1 10 ^3/uL (0-0.8); Hemoglobin 11.7 g/dL (13.5-17.5); Lymphocytes # (auto) 3.2 10 ^3/uL (0.4-5.4)
[2024-05-16 06:02] LABS: Basophils # (auto) 0 10 ^3/uL (0-0.2); Basophils % (auto) 0.2 % (0.0-2.0); Eosinophils % (auto) 0.6 % (0.0-7.0); Hematocrit 35.2 % (41.0-53.0); Lymphocytes % (auto) 17.4 % (10.0-50.0); Mean Corpuscular Hemoglobin 26.3 pg (28.0-32.0); Mean Corpuscular Hgb Conc. 33.3 g/dL (32.0-36.0); Monocytes # (auto) 1.2 10 ^3/uL (0-1.3); Monocytes % (auto) 6.6 % (0.0-12.0); Neutrophils # (auto) 13.6 10 ^3/uL (1.6-8.6); Neutrophils % (auto) 75.2 % (37.0-80.0); Platelet Count (auto) 312 10^3/uL (140-450); Red Blood Cells 4.46 10^6/uL (4.5-5.90); Red Cell Distribution Width 16.7 % (11.8-14.3); White Blood Cell 18.1 10^3/uL (4.4-10.8)
[2024-05-16 06:09] LABS: Chloride 99 mmol/L (98-107); Potassium 3.7 mmol/L (3.5-5.1); Sodium 135 mmol/L (136-145)
[2024-05-16 06:10] LABS: Anion Gap 11 (5-15); Carbon Dioxide 25 mmol/L (20-31)
[2024-05-16 06:15] LABS: BUN/Creatinine Ratio 24.1 (10.0-20.0); Blood Urea Nitrogen 13 mg/dL (9-23); Glucose 117 mg/dL (74-106)
[2024-05-16 16:40] LABS: Urine Bacteria FEW /hpf (None Seen); Urine Blood Negative /uL (Negative); Urine Clarity Clear (Clear); Urine Color Light-Yellow (Yellow); Urine Protein, UAD 1+ (Negative); Urine Specific Gravity 1.013 (1.001-1.035); Urine Urobilinogen Normal (Negative); Urine WBC 2 /hpf (0 - 3); Urine pH 5.5 (5.0-9.0)
[2024-05-16] MEDS: LACTULOSE 20Gm/30ML SOLN PO PRN (18:01)
[2024-05-17] VITALS (42 sets, daily range): BP systolic 37–175; BP diastolic 18–95; PULSE 57–121; RESP 16–99; TEMP 97.9–99.8; O2SAT 93–100
[2024-05-17 05:15] LABS: Basophils # (auto) 0 10 ^3/uL (0-0.2); Basophils % (auto) 0.3 % (0.0-2.0); Eosinophils # (auto) 0.1 10 ^3/uL (0-0.8); Hematocrit 31.9 % (41.0-53.0); Hemoglobin 10.6 g/dL (13.5-17.5); Mean Corpuscular Hgb Conc. 33.2 g/dL (32.0-36.0); Monocytes # (auto) 0.8 10 ^3/uL (0-1.3)
[2024-05-17 05:18] LABS: Lymphocytes # (auto) 1.2 10 ^3/uL (0.4-5.4); Mean Corpuscular Hemoglobin 26.2 pg (28.0-32.0); Mean Corpuscular Volume 78.9 fL (80.0-100.0); Monocytes % (auto) 7.2 % (0.0-12.0); Neutrophils # (auto) 8.6 10 ^3/uL (1.6-8.6); Neutrophils % (auto) 80.5 % (37.0-80.0); Platelet Count (auto) 209 10^3/uL (140-450); Red Blood Cells 4.04 10^6/uL (4.5-5.90); Red Cell Distribution Width 16.5 % (11.8-14.3); White Blood Cell 10.7 10^3/uL (4.4-10.8)
[2024-05-17 05:38] LABS: Alanine Aminotransferase 57 U/L (7-40); Albumin 3.9 g/dL (3.2-4.8); Alkaline Phosphatase 84 U/L (46-116); Anion Gap 9 (5-15); Aspartate Aminotransferase 16 U/L (13-40); BUN/Creatinine Ratio 17.6 (10.0-20.0); Bilirubin, Total 0.5 mg/dL (0.2-1.0); Blood Urea Nitrogen 9 mg/dL (9-23); Calcium 9.6 mg/dL (8.7-10.4); Carbon Dioxide 28 mmol/L (20-31); Chloride 101 mmol/L (98-107); Glucose 95 mg/dL (74-106); Magnesium 1.7 mg/dL (1.6-2.6); Potassium 3.2 mmol/L (3.5-5.1); Sodium 138 mmol/L (136-145); Total Protein 6.5 g/dL (5.7-8.2)
[2024-05-17] MEDS ORDERED: POTASSIUM CHL 20MEQ/100ML 100 ML IV SCH (07:00)
[2024-05-17] MEDS: POTASSIUM CHL 20MEQ/100ML 100 ML IV ONE ×2 (07:13→11:38)
[2024-05-17] MEDS: MORPHINE SULFATE INJ 2 MG/ml SYRG IV PRN (10:50)
[2024-05-17] MEDS: MAGNESIUM SULFATE 1GM/100ML 100 ML IV SCH (15:59)
[2024-05-17] MEDS: MEROPENEM 1GM IVPB 50 ML IV SCH (18:09)
[2024-05-17] MEDS: VANCOMYCIN 1GM/250ML 200 ML IV ONE (20:21)
[2024-05-17] MEDS: MELATONIN 5 MG TAB ONE (20:21)
[2024-05-17] MEDS: SACUBITRIL-VALSARTAN 24mg/26mg TAB PO SCH (22:00)
[2024-05-17] MEDS: LORazepam 2MG/ML-1ML VIAL IV PRN (23:28)
[2024-05-18] VITALS (87 sets, daily range): BP systolic 65–263; BP diastolic 31–139; PULSE 61–139; RESP 13–44; TEMP 98.5–99.3; O2SAT 93–100
[2024-05-18 07:14] LABS: Basophils # (auto) 0 10 ^3/uL (0-0.2); Basophils % (auto) 0.2 % (0.0-2.0); Eosinophils # (auto) 0.1 10 ^3/uL (0-0.8); Eosinophils % (auto) 1.3 % (0.0-7.0); Hematocrit 40.5 % (41.0-53.0); Hemoglobin 13.2 g/dL (13.5-17.5); Lymphocytes # (auto) 2.3 10 ^3/uL (0.4-5.4); Lymphocytes % (auto) 19.9 % (10.0-50.0); Mean Corpuscular Hemoglobin 26.4 pg (28.0-32.0); Mean Corpuscular Hgb Conc. 32.7 g/dL (32.0-36.0); Mean Corpuscular Volume 80.5 fL (80.0-100.0); Monocytes # (auto) 0.8 10 ^3/uL (0-1.3); Monocytes % (auto) 7.1 % (0.0-12.0); Neutrophils # (auto) 8.4 10 ^3/uL (1.6-8.6); Neutrophils % (auto) 71.5 % (37.0-80.0); Nucleated Red Blood Cells % 0.2 %; Platelet Count (auto) 346 10^3/uL (140-450); Red Blood Cells 5.03 10^6/uL (4.5-5.90); Red Cell Distribution Width 16.8 % (11.8-14.3); White Blood Cell 11.8 10^3/uL (4.4-10.8)
[2024-05-18] MEDS: PHENYLEPHRINE IV 250 ML IV SCH (07:14)
[2024-05-18 07:27] LABS: Base Excess 2.6 mmol/L (-2.0-3.0)
[2024-05-18] MEDS: PHENYLEPHRINE IV 250 ML IV ONE ×2 (07:27→10:35)
[2024-05-18 07:29] LABS: Alanine Aminotransferase 53 U/L (7-40); Albumin 4.7 g/dL (3.2-4.8); Alkaline Phosphatase 104 U/L (46-116); Anion Gap 11 (5-15); Aspartate Aminotransferase 23 U/L (13-40); BUN/Creatinine Ratio 15.7 (10.0-20.0); Bilirubin, Total 0.6 mg/dL (0.2-1.0); Blood Urea Nitrogen 8 mg/dL (9-23); Calcium 10.6 mg/dL (8.7-10.4); Carbon Dioxide 27 mmol/L (20-31); Chloride 100 mmol/L (98-107); Glucose 109 mg/dL (74-106); Phosphorus 2.4 mg/dL (2.4-5.1); Sodium 138 mmol/L (136-145); Total Protein 8.2 g/dL (5.7-8.2)
[2024-05-18] MEDS ORDERED: PHENYLEPHRINE IV 250 ML IV SCH (07:30)
[2024-05-18] MEDS: FUROSEMIDE 20 MG/2 ML VIAL IV SCH (10:00)
[2024-05-18] MEDS: NOREPINEPHRINE 8 MG/250ML KIT 250 ML IV SCH (11:00)
[2024-05-18] MEDS: NOREPINEPHRINE 8 MG/250ML KIT 250 ML IV ONE (11:43)
[2024-05-18] MEDS ORDERED: LABETALOL HCL 20 MG/4 ML VL IV PRN (15:15)
[2024-05-18] MEDS: SACUBITRIL-VALSARTAN 24mg/26mg TAB PO SCH (21:58)
[2024-05-18] MEDS: hydrALAZINE HCL 20 MG/ML VL IV PRN (23:07)
[2024-05-19] VITALS (85 sets, daily range): BP systolic 75–231; BP diastolic 35–126; PULSE 63–133; RESP 12–36; TEMP 97.6–99.1; O2SAT 84–100
[2024-05-19] MEDS: IPRATROPIUM BROM 0.5 MG/2.5ML INH SOL ONE (01:55)
[2024-05-19] MEDS: LEVALBUTEROL HCL 1.25 MG/3 ML NEB ONE (01:55)
[2024-05-19] MEDS ORDERED: ARTIFICIAL TEARS 15ml EACHEYE PRN (04:30)
[2024-05-19 05:10] LABS: Basophils # (auto) 0 10 ^3/uL (0-0.2); Basophils % (auto) 0.3 % (0.0-2.0); Eosinophils # (auto) 0.3 10 ^3/uL (0-0.8); Eosinophils % (auto) 3.5 % (0.0-7.0); Hematocrit 31.4 % (41.0-53.0); Hemoglobin 10.7 g/dL (13.5-17.5); Lymphocytes # (auto) 1.6 10 ^3/uL (0.4-5.4); Lymphocytes % (auto) 20.9 % (10.0-50.0); Mean Corpuscular Hgb Conc. 34.1 g/dL (32.0-36.0); Mean Corpuscular Volume 79.2 fL (80.0-100.0); Monocytes # (auto) 0.6 10 ^3/uL (0-1.3); Monocytes % (auto) 7.8 % (0.0-12.0); Neutrophils % (auto) 67.5 % (37.0-80.0); Nucleated Red Blood Cells % 0.1 %; Platelet Count (auto) 326 10^3/uL (140-450); Red Blood Cells 3.96 10^6/uL (4.5-5.90); Red Cell Distribution Width 16.3 % (11.8-14.3); White Blood Cell 7.4 10^3/uL (4.4-10.8)
[2024-05-19 05:24] LABS: Alanine Aminotransferase 37 U/L (7-40); Alkaline Phosphatase 77 U/L (46-116); Anion Gap 8 (5-15); Aspartate Aminotransferase 18 U/L (13-40); BUN/Creatinine Ratio 19.6 (10.0-20.0); Blood Urea Nitrogen 9 mg/dL (9-23); Calcium 10.1 mg/dL (8.7-10.4); Carbon Dioxide 26 mmol/L (20-31); Chloride 101 mmol/L (98-107); Glucose 117 mg/dL (74-106); Magnesium 1.6 mg/dL (1.6-2.6); Potassium 3.5 mmol/L (3.5-5.1); Sodium 135 mmol/L (136-145)
[2024-05-19 05:25] LABS: Bilirubin, Total 0.6 mg/dL (0.2-1.0); Total Protein 6.9 g/dL (5.7-8.2)
[2024-05-19] MEDS: hydrALAZINE HCL 20 MG/ML VL IV ONE (06:00)
[2024-05-19] MEDS: MAGNESIUM SULFATE 1GM/100ML 200 ML IV ONE (08:46)
[2024-05-19] MEDS: MAGNESIUM SULFATE 1GM/100ML 100 ML IV SCH (08:50)
[2024-05-19 08:53] LABS: Base Excess 3.5 mmol/L (-2.0-3.0)
[2024-05-19] MEDS: VANCOMYCIN 750mg/150ml 150 ML IV SCH (13:53)
[2024-05-19] MEDS: ERTAPENEM SOD INJ 1 GM in SODIUM CHL 0.9% 50 ML IV SCH (18:35)
[2024-05-20] VITALS (56 sets, daily range): BP systolic 80–203; BP diastolic 51–136; PULSE 63–123; RESP 10–37; TEMP 97.1–99.7; O2SAT 71–100
[2024-05-20 07:00] LABS: Anion Gap 8 (5-15); Carbon Dioxide 28 mmol/L (20-31); Chloride 102 mmol/L (98-107); Potassium 3.9 mmol/L (3.5-5.1); Sodium 138 mmol/L (136-145)
[2024-05-20 07:01] LABS: Calcium 9.9 mg/dL (8.7-10.4)
[2024-05-20 07:06] LABS: BUN/Creatinine Ratio 15.9 (10.0-20.0); Blood Urea Nitrogen 7 mg/dL (9-23); Glucose 115 mg/dL (74-106)
[2024-05-20 07:07] LABS: Magnesium 1.8 mg/dL (1.6-2.6)
[2024-05-20 09:02] LABS: Basophils # (auto) 0 10 ^3/uL (0-0.2); Basophils % (auto) 0.6 % (0.0-2.0); Eosinophils # (auto) 0.3 10 ^3/uL (0-0.8); Eosinophils % (auto) 4.1 % (0.0-7.0); Hematocrit 32.9 % (41.0-53.0); Hemoglobin 11.1 g/dL (13.5-17.5); Lymphocytes # (auto) 2.1 10 ^3/uL (0.4-5.4); Lymphocytes % (auto) 27.7 % (10.0-50.0); Mean Corpuscular Hemoglobin 26.9 pg (28.0-32.0); Mean Corpuscular Hgb Conc. 33.7 g/dL (32.0-36.0); Mean Corpuscular Volume 79.7 fL (80.0-100.0); Monocytes # (auto) 0.6 10 ^3/uL (0-1.3); Monocytes % (auto) 7.7 % (0.0-12.0); Neutrophils # (auto) 4.6 10 ^3/uL (1.6-8.6); Neutrophils % (auto) 59.9 % (37.0-80.0); Nucleated Red Blood Cells % 0.1 %; Platelet Count (auto) 407 10^3/uL (140-450); Red Blood Cells 4.12 10^6/uL (4.5-5.90); Red Cell Distribution Width 16.2 % (11.8-14.3); White Blood Cell 7.6 10^3/uL (4.4-10.8)
[2024-05-20] MEDS: DAPTOmycin 250 MG in SODIUM CHL 0.9% 50 ML IV SCH (15:02)
[2024-05-20] MEDS: VANCOMYCIN 750mg/150ml 150 ML IV SCH (18:17)
[2024-05-21] VITALS (26 sets, daily range): BP systolic 110–174; BP diastolic 71–115; PULSE 72–118; RESP 14–32; TEMP 97.9–98.6; O2SAT 90–100
[2024-05-21 06:16] LABS: Anion Gap 8 (5-15); Carbon Dioxide 29 mmol/L (20-31); Chloride 99 mmol/L (98-107); Potassium 3.9 mmol/L (3.5-5.1); Sodium 136 mmol/L (136-145)
[2024-05-21 06:17] LABS: Calcium 10.3 mg/dL (8.7-10.4)
[2024-05-21 06:22] LABS: BUN/Creatinine Ratio 18.2 (10.0-20.0); Blood Urea Nitrogen 8 mg/dL (9-23); Glucose 108 mg/dL (74-106)
[2024-05-21 06:23] LABS: Magnesium 1.7 mg/dL (1.6-2.6)
[2024-05-21 07:41] LABS: Basophils # (auto) 0.1 10 ^3/uL (0-0.2); Basophils % (auto) 0.7 % (0.0-2.0); Eosinophils # (auto) 0.4 10 ^3/uL (0-0.8)
[2024-05-21 07:45] LABS: Eosinophils % (auto) 4.1 % (0.0-7.0); Hematocrit 34.1 % (41.0-53.0); Hemoglobin 11.2 g/dL (13.5-17.5); Lymphocytes # (auto) 3.3 10 ^3/uL (0.4-5.4); Lymphocytes % (auto) 32.8 % (10.0-50.0); Mean Corpuscular Hemoglobin 26.5 pg (28.0-32.0); Mean Corpuscular Volume 80.4 fL (80.0-100.0); Monocytes # (auto) 0.6 10 ^3/uL (0-1.3); Monocytes % (auto) 6.2 % (0.0-12.0); Neutrophils # (auto) 5.6 10 ^3/uL (1.6-8.6); Neutrophils % (auto) 56.2 % (37.0-80.0); Nucleated Red Blood Cells % 0.3 %; Platelet Count (auto) 415 10^3/uL (140-450); Red Blood Cells 4.24 10^6/uL (4.5-5.90); Red Cell Distribution Width 16.7 % (11.8-14.3); White Blood Cell 9.9 10^3/uL (4.4-10.8)
[2024-05-21 09:21] LABS: Anisocytosis Slight; Platelet Estimate Adequate
[2024-05-21] MEDS: MAGNESIUM SULFATE 1GM/100ML 100 ML IV ONE (09:54)
[2024-05-21] MEDS ORDERED: DAPTOmycin 0 MG in SODIUM CHL 0.9% 50 ML IV SCH (10:00)
[2024-05-21] MEDS ORDERED: METO25TA5 PO (11:56)
== END 2024-05-21 16:43 | disposition home health service (06) | DRG 871 ==
LOC: EDBD 23:19 → ER 23:19 → TELE 05-10 05:54 → ICU WEST 05-10 14:42 → DOU IN ICU 05-15 15:23 → TELE-EAST 05-21 15:37
PROVIDERS: ADMIT Internal Medicine; ATTEND Internal Medicine
PROC: 5A1945Z Respiratory Ventilation, 24-96 Consecutive Hours (ICD-10-PCS; principal; 2024-05-10)
PROC: 0BH17EZ Insertion of Endotracheal Airway into Trachea, Via Natural or Artificial Opening (ICD-10-PCS; 2024-05-10)
PROC: 02HV33Z Insertion of Infusion Device into Superior Vena Cava, Percutaneous Approach (ICD-10-PCS; 2024-05-10)
PROC: 05HA33Z Insertion of Infusion Device into Left Brachial Vein, Percutaneous Approach (ICD-10-PCS; 2024-05-13)
PROC: B54NZZA Ultrasonography of Left Upper Extremity Veins, Guidance (ICD-10-PCS; 2024-05-13)
DX: A41.51 Sepsis due to Escherichia coli [E. coli] (principal); G92.8 Other toxic encephalopathy; J96.01 Acute respiratory failure with hypoxia; N17.0 Acute kidney failure with tubular necrosis; I50.23 Acute on chronic systolic (congestive) heart failure; R65.21 Severe sepsis with septic shock; I21.19 ST elevation (STEMI) myocardial infarction involving other coronary artery of inferior wall; R53.2 Functional quadriplegia; J15.69 Pneumonia due to other Gram-negative bacteria; J98.11 Atelectasis; N39.0 Urinary tract infection, site not specified; E11.9 Type 2 diabetes mellitus without complications; E66.9 Obesity, unspecified; I11.0 Hypertensive heart disease with heart failure; J45.909 Unspecified asthma, uncomplicated; K21.9 Gastro-esophageal reflux disease without esophagitis; E78.5 Hyperlipidemia, unspecified; D50.9 Iron deficiency anemia, unspecified; I48.0 Paroxysmal atrial fibrillation; Z68.33 Body mass index [BMI] 33.0-33.9, adult; Z89.612 Acquired absence of left leg above knee; Z89.611 Acquired absence of right leg above knee; Z93.3 Colostomy status; Z88.2 Allergy status to sulfonamides; Z91.018 Allergy to other foods; Z79.82 Long term (current) use of aspirin
CPT/HCPCS: 36415; 36600; 70450; 71045; 71250; 71260; 74177; 80048; 80053; 80202; 80307; 81001; 82140; 82565; 82728; 82805; 82962; 83036; 83540; 83550; 83605; 83690; 83735; 83880; 84100; 84439; 84443; 84481; 84484; 85025; 85610; 85730; 87040; 87070; 87077; 87081; 87086; 87088; 87186; 87205; 92507; 92610; 93005; 94003; 94640; 94667; 94668; 99291; 99292; G0378; J0131; J0461; J0692; J1335; J2185; J2470; J3480

== ENCOUNTER 2025-07-15 20:56 | Inpatient (IN) | payer MEDICARE, MEDICAID ==
[~2025-07-15] VITALS: Ht 175.3 cm; Wt 61.7 kg
[2025-07-15] MEDS: NOREPINEPHRINE 8 MG/250ML KIT 250 ML IV SCH
[~2025-07-15 20:56] MED LIST changes: -AMLO1TAB22 PO; -CEPH250C2 PO; -CIP500T PO; +GABA-1250 PO; -GABA800T97 PO; -LACT10SO3 PO; +METF-370 PO; -METF-371 PO; +METO25TA5 PO
[2025-07-15 21:15] VITALS: PULSE 49; RESP 6; O2SAT 98
--- NOTE | 2025-07-15 21:18 | ED.PDOC ---
Altered Mental Status HPI Comments 68-year-old male with past medical history of hypertension, type 2 diabetes mellitus, LA, asthma, quadriplegia, status post bilateral above-knee amputation, status post colostomy, chronic suprapubic catheter who presented to the ED due to altered level of consciousness. Apparently, family member the patient unresp onsive at bed since 3:00 p.m. the persistence of paramedics were called. On arrival patient was GCS 3, was given 0.5 Narcan and it went up to GCS 6. EKG done showed ST changes. Patient remained unresponsive to verbal stimuli upon arrival to the ER Chief Complaint: ALOC Time Seen by MD: 21:17 Primary Care Provider: UNKNOWN Reviewed Notes: Strategic Marketing Leader Notes Allergies: Coded Allergies: Jones (Verified Allergy, Unknown, 03/05/24) Sulfa Antibiotics (Verified Allergy, Unknown, 03/05/24) Tomato (Verified Allergy, Unknown, 03/05/24) Home Meds Active Scripts Metoprolol Tartrate (Metoprolol Tartrate) 25 Mg Tab, 1 TAB PO BID for 30 Days, #60 TAB 1 Refill Prov:DORA ENG RESIDENT 05/21/24 Reported Medications Metformin Hydrochloride (Metformin Hcl) 500 Mg Tab, 500 MG PO BID, TAB 05/11/24 Gabapentin (Gabapentin) 300 Mg Cap, 400 MG PO TID for 30 Days, MG 05/11/24 Albuterol Sulfate (Albuterol Sulfate Hfa) 108 Mcg/Act Aer, 2 PUFF INH Q4-6HR PRN 03/08/24 Aspirin (Aspir-Low) 81 Mg Tab, 81 MG PO DAILY for 30 Days, MG 03/05/24 Ferrous Sulfate (FERROUS SULFATE) 325 Mg Tb, 325 MG PO DAILY, TAB 03/05/24 Omeprazole (Omeprazole Dr) 20 Mg Cap, 1 CAP PO DAILY 03/05/24 Montelukast Sodium (MONTELUKAST SODIUM) 10 Mg Tab, 1 TAB PO DAILY 03/05/24 Baclofen (Baclofen) 20 Mg Tab, 1 TAB PO QID 03/05/24 Methenamine Hippurate (Methenamine Hippurate) 1 Gm Tab, 1 TAB PO BID 03/05/24 Atorvastatin Calcium (ATORVASTATIN CALCIUM) 10 Mg Tab, 1 TAB PO DAILY 03/05/24 Lisinopril (Lisinopril) 20 Mg Tab, 1 TAB PO DAILY 03/05/24 Zolpidem Tartrate (Zolpidem Tartrate) 10 Mg Tab, 1 TAB PO QHSP PRN for ANXIETY 03/05/24 Information Source: Emergency Med Personnel Past Medical History PAST MEDICAL HISTORY: Asthma, DM, GERD, HTN, LA Past Medical History (Other): Quadriplegia Surgical History: AKA (Bilateral) Surgical History (Other): Colostomy Family History Family History: Unobtainable Social History Smoker: Unobtainable Alcohol: Unobtainable Drugs: Unobtainable Lives In: Home Unable to Obtain due to: Altered Mental Status Physical Exam General Appearance: No Apparent Distress, Normal HEENT: Normal ENT Inspection, Pharynx Normal, TMs Normal Neck: Full Range of Motion, Non-Tender, Normal, Normal Inspection Respiratory: Chest Non-Tender, Lungs Clear, No Accessory Muscle Use, No Respiratory Distress, Normal Breath Sounds Cardiovascular: No Edema, No JVD, No Murmur, No Gallop, Normal Peripheral Pulse s, Regular Rate/Rhythm Breast Exam: Deferred Gastrointestinal: No Organomegaly, Non Tender, No Pulsatile Mass, Normal Bowel Sounds, Soft Genitalia: Deferred Pelvic: Deferred Rectal: Deferred Extremities: No calf tenderness, Normal capillary refill, Normal inspection, Normal range of motion, Non-tender, No pedal edema Musculoskeletal : Apperance: Normal Neurologic: Alert, change booth attendant II-XII nml as Tested, No Motor Deficits, Normal Affect, Normal Mood, No Sensory Deficits Cerebellar Function: Normal Reflexes: Normal Skin: Dry, Normal Color, Warm Lymphatic: No Adenopathy EKG EKG : Pulse Rate (adult): 56 Cardiac Rhythm: NSR Was a procedure done? Was a procedure done?: Yes Sedation Sedation?: No Central Line Recorder of insertion practice: Observer Occupation of forklift picker: Attending Physician Indication: Volume resuscitation, Inability to obtain IV, Suspected infection Room prepared for procedure: Yes Rf Technician performed hand hygien: Yes Maximal sterile barrier precau: Mask/Eye shield, Sterile gown, Cap, Sterlie gloves, Large sterlie drape Skin Preparation: Providine iodine Skin preparation completely dr: Yes Insertion site: Right, Internal jugular Central line catheter type: Tunneled- not dialysis Number of lumens: 3 Central line exchanged over a: Yes Antiseptic ointment applied to: Yes Post Assessment: Chest X-Ray Informed consent obtained: No Risks/benefits/alt described: No Differential Diagnosis (ALOC) Differential Diagnosis: Dehydration, Encephalopathy, Sepsis, Hypoxemia X-Ray, Labs, Meds, VS Vital Signs Date Time Temp Pulse Resp B/P (MAP) Pulse Ox O2 Delivery O2 Flow Rate FiO2 07/16/25 00:00 73/54 07/15/25 22:46 46 7 70/39 (49) 96 07/15/25 22:01 38 8 91/58 (69) 95 07/15/25 21:43 34 8 89/62 (71) 96 07/15/25 21:24 39 8 81/55 (64) 99 07/15/25 21:19 56 07/15/25 21:15 97.9 49 6 85/46 (59) 98 97.9 07/15/25 21:15 49 6 98 Room Air* 0 21 07/15/25 20:56 56 07/15/25 20:56 93.2 56 17 91/56 99 93.2 Lab Test 07/16/25 00:10 07/15/25 22:26 07/15/25 21:39 07/15/25 21:25 Range/Units Lactic Acid Level Pending 2.1 *H 0.4-2.0 mmol/L Troponin I High Sensitivity Pending 22 24 </=54 ng/L White Blood Count 12.5 H 4.4-10.8 10^3/uL Red Blood Count 4.66 4.5-5.90 10^6/uL Hemoglobin 12.4 L 13.5-17.5 g/dL Hematocrit 38.1 L 41.0-53.0 % Mean Corpuscular Volume 81.7 80.0-100.0 fL Mean Corpuscular Hemoglobin 26.6 L 28.0-32.0 pg Mean Corpuscular Hemoglobin Concent 32.6 32.0-36.0 g/dL Red Cell Distribution Width 17.2 H 11.8-14.3 % Platelet Count 233 140-450 10^3/uL Mean Platelet Volume 7.9 6.9-10.8 fL Neutrophils (%) (Auto) 75.0 37.0-80.0 % Lymphocytes (%) (Auto) 16.6 10.0-50.0 % Monocytes (%) (Auto) 7.1 0.0-12.0 % Eosinophils (%) (Auto) 1.0 0.0-7.0 % Basophils (%) (Auto) 0.3 0.0-2.0 % Neutrophils # (Auto) 9.4 H 1.6-8.6 10 ^3/uL Lymphocytes # (Auto) 2.1 0.4-5.4 10 ^3/uL Monocytes # (Auto) 0.9 0-1.3 10 ^3/uL Eosinophils # (Auto) 0.1 0-0.8 10 ^3/uL Basophils # (Auto) 0 0-0.2 10 ^3/uL Nucleated Red Blood Cells 0.1 % Sodium Level 134 L 136-145 mmol/L Potassium Level 5.0 3.5-5.1 mmol/L Chloride Level 99 98-107 mmol/L Carbon Dioxide Level 25 20-31 mmol/L Anion Gap 10 5-15 Blood Urea Nitrogen 26 H 9-23 mg/dL Creatinine 1.01 0.700-1.30 mg/dL Glomerular Filtration Rate Calc 81 >90 mL/min BUN/Creatinine Ratio 25.7 H 10.0-20.0 Serum Glucose 103 74-106 mg/dL Calcium Level 9.9 8.7-10.4 mg/dL Magnesium Level 2.1 1.6-2.6 mg/dL Total Bilirubin 0.3 0.2-1.0 mg/dL Aspartate Amino Transferase (AST) 18 13-40 U/L Alanine Aminotransferase (ALT) 16 7-40 U/L Alkaline Phosphatase 47 46-116 U/L Total Protein 7.0 5.7-8.2 g/dL Albumin 4.1 3.2-4.8 g/dL Plasma/Serum Blood Alcohol < 3.0 <10 mg/dL Test 07/15/25 00:00 Range/Units Urine Color Brown H Yellow Urine Clarity Ex.turbid Clear Urine pH 5.5 5.0-9.0 Urine Specific [place] 1.013 1.001-1.035 Urine Protein 2+ H Negative Urine Ketones Negative Negative Urine Blood 3+ H Negative /uL Urine Nitrite Negative Negative Urine Bilirubin Negative Negative Urine Urobilinogen Normal Negative mg/dL Urine Leukocyte Esterase 2+ Negative /uL Urine RBC 77 0 - 3 /hpf Urine WBC Clumps Present None Seen /hpf Urine Microscopic WBC 4311 H 0-3 /HPF Urine Squamous Epithelial Cells Few <5 /hpf Urine Bacteria None seen None Seen /hpf Urine Glucose Normal Normal mg/dL Urine Opiates Screen Neg NEGATIVE Urine Fentanyl Screen Neg NEGATIVE Urine Barbiturates Screen Neg NEGATIVE Urine Phencyclidine Screen Neg NEGATIVE Urine Amphetamines Screen Neg NEGATIVE Urine Benzodiazepines Screen Neg NEGATIVE Urine Cocaine Screen Neg NEGATIVE Urine Cannabinoids Screen Pos NEGATIVE Current Medications Medications (Trade) Dose Ordered Sig/Rosmery Route Start Time Stop Time Status Last Admin Sodium Chloride 1,000 ml @ 1,000 mls/hr Q1H ONCE IVB 07/15/25 21:30 07/15/25 22:29 DC 07/15/25 21:47 Sodium Chloride 2,100 ml @ 2,100 mls/hr ONCE ONCE IV 07/15/25 21:45 07/15/25 22:44 DC 07/16/25 00:28 Piperacillin Sod/ Tazobactam Sod 100 ml @ 100 mls/hr ONCE ONCE IV 07/15/25 21:45 07/15/25 22:44 DC 07/15/25 22:49 Norepinephrine Bitartrate 250 ml @ 3.75 mls/hr Q24H IV 07/15/25 21:45 07/16/25 00:00 Atropine Sulfate (Atropine Sulfate) 1 mg ONCE ONCE IV 07/16/25 00:30 07/16/25 00:31 DC 07/16/25 00:26 Time of 1ST Reevaluation: 21:17 Reevaluation 1ST: Unchanged Patient Education/Counseling: Other Family Education/Counseling: No Family Present SEPSIS Sepsis Screen Physician Orders Electrocardigram (07/15/25 20:59) Electrocardigram (07/15/25 23:59) Head Without Contrast (07/15/25 21:07) Ditch Tender (07/15/25 21:07) Troponin-I Hs (07/16/25 00:07) Ditch Tender (07/15/25 21:19) Blood Culture (07/15/25 21:19) Norepinephrine 8 Mg/250ml Kit (Levophed) (07/15/25 21:45) Central Line (07/15/25 ) Chest Portable (07/15/25 22:45) Chest Portable (07/15/25 23:45) Communication Order (07/15/25 23:54) Vital Signs Date Time Temp Pulse Resp B/P (MAP) Pulse Ox O2 Delivery O2 Flow Rate FiO2 07/16/25 00:00 73/54 07/15/25 22:46 46 7 70/39 (49) 96 07/15/25 22:01 38 8 91/58 (69) 95 07/15/25 21:43 34 8 89/62 (71) 96 07/15/25 21:24 39 8 81/55 (64) 99 07/15/25 21:19 56 07/15/25 21:15 97.9 49 6 85/46 (59) 98 97.9 07/15/25 21:15 49 6 98 Room Air* 0 21 07/15/25 20:56 56 07/15/25 20:56 93.2 56 17 91/56 99 93.2 Laboratory Tests Test 07/15/25 21:25 07/15/25 21:39 07/16/25 00:10 White Blood Count 12.5 10^3/uL (4.4-10.8) H Lactic Acid Level 2.1 mmol/L (0.4-2.0) *H Pending Medications Medications Dose Ordered Sig/Rosmery Route Start Time Stop Time Status Last Admin Dose Admin Atropine Sulfate 1 mg ONCE ONCE IV 07/16/25 00:30 07/16/25 00:31 DC 07/16/25 00:26 Norepinephrine Bitartrate 250 ml @ 3.75 mls/hr Q24H IV 07/15/25 21:45 07/16/25 00:00 Piperacillin Sod/ Tazobactam Sod 100 ml @ 100 mls/hr ONCE ONCE IV 07/15/25 21:45 07/15/25 22:44 DC 07/15/25 22:49 Sodium Chloride 1,000 ml @ 1,000 mls/hr Q1H ONCE IVB 07/15/25 21:30 07/15/25 22:29 DC 07/15/25 21:47 Sodium Chloride 2,100 ml @ 2,100 mls/hr ONCE ONCE IV 07/15/25 21:45 07/15/25 22:44 DC 07/16/25 00:28 Departure 1 Departure Time of Disposition: 00:36 Impression: Primary Impression: Symptomatic bradycardia Additional Impressions: Metabolic encephalopathy UTI (urinary tract infection) Suprapubic catheter Pyelonephritis Disposition: ADMITTED INPATIENT Admit to: ICU Condition: Critical Comments 70-year-old male with a history of quadriplegia and suprapubic urinary catheter and colostomy now with decreased mental status. Patient patient has a urinary tract infection. Patient was given IV fluid bolus and IV antibiotics. Place a central line. Patient was started on Levophed. Patient will need to be admitted for further care and further workup Critical Care Note Critical Care Time?: Yes (35 min-critical care time only) Critical care comment: Total critical care time: Approximately 36 minutes Due to a high probability of clinically significant, life threatening deterioration, the patient required my highest level of preparedness to intervene emergently and I personally spent this critical care time directly and personally managing the patient. This critical care time included obtaining a history; examining the patient; pulse oximetry; ordering and review of studies; arranging urgent treatment with development of a management plan; evaluation of patient's response to treatment; frequent reassessment; and, discussions with other providers. This critical care time was performed to assess and manage the high probability of imminent, life-threatening deterioration that could result in multi-organ failure. It was exclusive of separately billable procedures and treating other patients. Stability Stability form required: No Heart Score Heart Score: Heart Score Response (Comments) Value History N/A 0 EKG N/A 0 Age N/A 0 Risk Factors N/A 0 Troponin N/A 0 Total 0 I personally scribed for DANISHA YAN MD (NORBERTO) on 07/15/25 at 21:18. Electronically submitted by Juan Busch ([facility] I personally scribed for DANISHA YAN MD (NORBERTO) on 07/15/25 at 21:19. Electronically submitted by Juan Busch ([facility] I personally scribed for DANISHA YAN MD (NORBERTO) on 07/15/25 at 22:35. Electronically submitted by Juan Busch ([facility] I personally scribed for DANISHA YAN MD (NORBERTO) on 07/15/25 at 23:47. Electronically submitted by Juan Busch ([facility]). DANISHA YAN MD Jul 15, 2025 21:18
[2025-07-15] MEDS: SODIUM CHLORIDE 0.9% 1,000 ML IVB ONE (21:47)
[2025-07-15 21:50] LABS: Hematocrit 38.1 % (41.0-53.0); Hemoglobin 12.4 g/dL (13.5-17.5); Mean Corpuscular Hemoglobin 26.6 pg (28.0-32.0); Mean Corpuscular Volume 81.7 fL (80.0-100.0); Nucleated Red Blood Cells % 0.1 %
[2025-07-15 22:02] LABS: Alanine Aminotransferase 16 U/L (7-40); Albumin 4.1 g/dL (3.2-4.8); Alkaline Phosphatase 47 U/L (46-116); Anion Gap 10 (5-15); BUN/Creatinine Ratio 25.7 (10.0-20.0); Bilirubin, Total 0.3 mg/dL (0.2-1.0); Blood Urea Nitrogen 26 mg/dL (9-23); Calcium 9.9 mg/dL (8.7-10.4); Carbon Dioxide 25 mmol/L (20-31); Chloride 99 mmol/L (98-107); Glucose 103 mg/dL (74-106); Potassium 5.0 mmol/L (3.5-5.1); Sodium 134 mmol/L (136-145); Total Protein 7.0 g/dL (5.7-8.2)
[2025-07-15 22:14] LABS: Magnesium 2.1 mg/dL (1.6-2.6)
[2025-07-15 22:16] LABS: Lactic Acid w/Reflex 2.1 mmol/L (0.4-2.0)
[2025-07-15] MEDS: PIPERACILLIN-TAZOB 3.375GM 100 ML IV ONE (22:49)
--- NOTE | 2025-07-15 23:15 | DVH ---
CHEST RADIOGRAPH Indication: central line placement Technique: Single frontal view of the chest was obtained COMPARISON: XY CHEST XRAY 1 VIEW on DOS: 05/20/24, XY CHEST XRAY 1 VIEW on DOS: 05/19/24, XY CHEST PORTABLE on DOS: 05/18/24, XY CHEST XRAY 1 VIEW on DOS: 05/17/24, XY CHEST XRAY 1 VIEW on DOS: 05/15/24 FINDINGS: Lines and Tubes: Right-sided central venous catheter is malpositioned with catheter coursing up the internal jugular vein. Repositioning is recommended. Lungs: Clear Pleura: No effusion. No pneumothorax. Cardiomediastinal contours: Unremarkable Bones: Unremarkable IMPRESSION: 1. Malpositioned right-sided central venous catheter. 2. Repositioning is recommended.
[2025-07-16 00:06] LABS: Cannabinoid Screen, Urine Pos (NEGATIVE)
[2025-07-16 00:14] LABS: Urine Protein, UAD 2+ (Negative); Urine WBC Clumps PRESENT /hpf (None Seen)
[2025-07-16 00:15] LABS: Amphetamine Screen, Urine Neg (NEGATIVE); Barbiturate Scree,Urine Neg (NEGATIVE); Benzodiazephine Screen, Urine Neg (NEGATIVE); Cocaine Screen, Urine Neg (NEGATIVE); Opiate Scree,Urine Neg (NEGATIVE); Phencyclidine Screen, Urine Neg (NEGATIVE)
[2025-07-16] MEDS: ATROPINE SULF 1 MG/10ml SYR IV ONE ×2 (00:26→05:11)
--- NOTE | 2025-07-16 00:26 | DVH ---
CHEST RADIOGRAPH Indication: central line placement Technique: Single frontal view of the chest was obtained COMPARISON: XY CHEST PORTABLE on DOS: 07/15/25, XY CHEST XRAY 1 VIEW on DOS: 05/20/24, XY CHEST XRAY 1 VIEW on DOS: 05/19/24, XY CHEST PORTABLE on DOS: 05/18/24, XY CHEST XRAY 1 VIEW on DOS: 05/17/24 FINDINGS: Right-sided central line with tip near the cavoatrial junction. Cardiac silhouette is borderline in size. No overt pulmonary edema. Lungs and pleural space is generally clear. No pneumothorax or significant pleural effusion. IMPRESSION: Right-sided central line terminating near the cavoatrial junction.
[2025-07-16] MEDS: SODIUM CHLORIDE 0.9% 2,100 ML IV ONE (00:28)
[2025-07-16] MEDS ORDERED: DEXTROSE (50%) 50ML SYRG IV PRN (02:15)
[2025-07-16] MEDS ORDERED: ONDANSETRON HCL 4 MG/2 ML VIAL IV PRN (02:15)
[2025-07-16] MEDS ORDERED: DOCUSATE SOD 100 MG CAP PO PRN (02:15)
[2025-07-16] MEDS ORDERED: ALBUTEROL SULF 2.5 MG/0.5ML(0.5%) NEB SOLN NEB PRN (02:15)
[2025-07-16] MEDS: SODIUM CHLORIDE 0.9% 1,000 ML IV SCH (02:31)
[2025-07-16] MEDS ORDERED: MORPHINE SULFATE INJ 2 MG/ml SYRG IV PRN (02:45)
[2025-07-16] MEDS ORDERED: NITROGLYCERIN 0.4 MG SL TAB SL PRN (02:45)
--- NOTE | 2025-07-16 03:04 | DVHHP2 ---
History of Present Illness Reason for Visit: Symptomatic bradycardia History of Present Illness The patient is a 68-year-old male quadriplegic with past medical history of asthma, GERD, diabetes mellitus, AL, and hypertension who presented to [facility] ED for evaluation of altered level of consciousness. As reported by family patient was unresponsive at bedside since 3:00 p.m. so EMS were called. When EMS arrived on the scene, the patient's GCS was 3 and was given Narcan 0.5 mg, GCS improved to 6, EKG showed ST changes, patient remains unresponsive to verbal stimuli upon arrival to the ED. Patient was seen and evaluated in the ED, laboratory data shows WBC 12.5, hemoglobin 12.4, hematocrit 28.1, platelets 233, sodium 134, potassium 5.0, BUN 26, creatinine 1.01, GFR 81, glucose 103, calcium 9.9, troponin 22, lactic acid 2.1 trending down to 0.9, blood pressure 70/39 trending up to 112/67, heart rate 38, temperature 97.9 F, O2 saturation 95% on oxygen. Urinalysis positive for urinary tract infection. Chest x-ray revealing malpositioned right-sided central venous catheter recommending repositioning; chest x-ray revealing right-sided central line terminating near the cavoatrial junction. Patient was started on IV antibiotic regimen Zosyn, please see medication orders section in the computer. On my assessment, patient remains altered, no diaphoresis, shortness of breaths, diarrhea, nausea, vomiting, fever, no chills. Patient was admitted for further evaluation and medical management. Past Medical History Asthma, DM, GERD, HTN, AL, Quadriplegia Past Surgical History AKA (Bilateral), Colostomy Family History Reviewed, noncontributory to the management of this case. Past Social History The patient lives at home, no history of smoking, alcohol or illicit drugs abuse on file. Review of Systems Constitutional: Yes: Weakness; No: Fever, Chills, Sweats, Malaise, Other Eyes: No: Pain, Vision change, Conjunctivae inflammation, Eyelid inflammation, Other, Redness ENT: No: Ear pain, Ear discharge, Nose pain, Nose discharge, Nose congestion, Mouth pain, Mouth swelling, Throat pain, Throat swelling, Other Respiratory: No: Cough, Dry, Shortness of breath, SOB with excertion, Wheezing, Hemoptysis, Pleuritic Pain, Sputum, Wheezing, Other Cardiovascular: No: Chest Pain, Palpitations, Orthopnea, Paroxysmal Noc. Dyspnea, Edema, Lt Headedness, Other Gastrointestinal: No: Nausea, Vomiting, Abdominal Pain, Diarrhea, Constipation, Melena, Hematochezia, Other Genitourinary: No Dysuria, No Frequency, No Incontinence, No Hematuria, No Retention; Other (Suprapubic catheter) Musculoskeletal: No: other, neck pain, shoulder pain, arm pain, back pain, hand pain, leg pain, foot pain Skin: No: Rash, Lesions, Jaundice, Bruising, Other Neurological: Confusion, Other (Altered level of consciousness); No: Weakness, Numbness, Incoordination, Change in speech, Seizures Allergies: Coded Allergies: [place] (Verified Allergy, Unknown, 03/05/24) Sulfa Antibiotics (Verified Allergy, Unknown, 03/05/24) Tomato (Verified Allergy, Unknown, 03/05/24) Medications Current Medications Medications Dose Ordered Sig/Rosmery Route Start Time Stop Time Status Last Admin Dose Admin Norepinephrine Bitartrate 250 ml @ 3.75 mls/hr Q24H IV 07/15/25 21:45 07/16/25 00:00 11.25 MLS/HR Aspirin 81 mg DAILY PO 07/16/25 10:00 Atorvastatin Calcium 10 mg HS PO 07/16/25 22:00 Piperacillin Sod/ Tazobactam Sod 100 ml @ 25 mls/hr Q8HR IV 07/16/25 06:00 Albuterol 2.5 mg Q4HPRN PRN NEB 07/16/25 02:15 Famotidine 20 mg DAILY IV 07/16/25 10:00 Diagnostic Test (Pha) 1 strip ACHS 07/16/25 07:00 Insulin Human Regular ACHS SC 07/16/25 07:00 Dextrose 50 ml UD PRN IV 07/16/25 02:15 Sodium Chloride 1,000 ml @ 60 mls/hr [id number] IV 07/16/25 02:15 07/16/25 02:31 60 MLS/HR Ondansetron HCl 4 mg Q4HP PRN IV 07/16/25 02:15 Docusate Sodium 100 mg BIDPRN PRN PO 07/16/25 02:15 Acetaminophen 650 mg Q6HP PRN PO 07/16/25 02:15 Exam Vital Signs Vital Signs Date Time Temp Pulse Resp B/P (MAP) Pulse Ox O2 Delivery O2 Flow Rate FiO2 07/16/25 00:40 112/67 07/16/25 00:00 35 07/16/25 00:00 9 94 07/15/25 21:15 97.9 97.9 07/15/25 21:15 Room Air* 0 21 General Appearance: Alert, Cooperative, No acute distress, Other (ORIENTED X1) HEENT: Atraumatic, PERRLA, EOMI, Mucous membr. moist/pink Respiratory: Normal air movement Cardiovascular: Normal S1, Normal S2, No murmurs, Other (Sinus bradycardia) Abdominal: Normal bowel sounds, Soft, No tenderness, No hepatospenomegaly, No masses Extremities: No clubbing, No cyanosis, No edema, Normal pulses, No tenderne ss/swelling, Other (Bilateral lower extremity AKA) Skin: No rashes, No significant lesion Neuro: Normal tone, Sensation intact, Reflexes 2+, Other (Generalized weakness) Psych/Mental Status: Mood NL, Other (Altered mental status) Labs/Xrays Labs Test 07/16/25 00:10 07/15/25 21:25 07/15/25 00:00 Range/Units Lactic Acid Level 0.9 0.4-2.0 mmol/L Troponin I High Sensitivity 17 </=54 ng/L White Blood Count 12.5 H 4.4-10.8 10^3/uL Red Blood Count 4.66 4.5-5.90 10^6/uL Hemoglobin 12.4 L 13.5-17.5 g/dL Hematocrit 38.1 L 41.0-53.0 % Mean Corpuscular Volume 81.7 80.0-100.0 fL Mean Corpuscular Hemoglobin 26.6 L 28.0-32.0 pg Mean Corpuscular Hemoglobin Concent 32.6 32.0-36.0 g/dL Red Cell Distribution Width 17.2 H 11.8-14.3 % Platelet Count 233 140-450 10^3/uL Mean Platelet Volume 7.9 6.9-10.8 fL Neutrophils (%) (Auto) 75.0 37.0-80.0 % Lymphocytes (%) (Auto) 16.6 10.0-50.0 % Monocytes (%) (Auto) 7.1 0.0-12.0 % Eosinophils (%) (Auto) 1.0 0.0-7.0 % Basophils (%) (Auto) 0.3 0.0-2.0 % Neutrophils # (Auto) 9.4 H 1.6-8.6 10 ^3/uL Lymphocytes # (Auto) 2.1 0.4-5.4 10 ^3/uL Monocytes # (Auto) 0.9 0-1.3 10 ^3/uL Eosinophils # (Auto) 0.1 0-0.8 10 ^3/uL Basophils # (Auto) 0 0-0.2 10 ^3/uL Nucleated Red Blood Cells 0.1 % Sodium Level 134 L 136-145 mmol/L Potassium Level 5.0 3.5-5.1 mmol/L Chloride Level 99 98-107 mmol/L Carbon Dioxide Level 25 20-31 mmol/L Anion Gap 10 5-15 Blood Urea Nitrogen 26 H 9-23 mg/dL Creatinine 1.01 0.700-1.30 mg/dL Glomerular Filtration Rate Calc 81 >90 mL/min BUN/Creatinine Ratio 25.7 H 10.0-20.0 Serum Glucose 103 74-106 mg/dL Calcium Level 9.9 8.7-10.4 mg/dL Magnesium Level 2.1 1.6-2.6 mg/dL Total Bilirubin 0.3 0.2-1.0 mg/dL Aspartate Amino Transferase (AST) 18 13-40 U/L Alanine Aminotransferase (ALT) 16 7-40 U/L Alkaline Phosphatase 47 46-116 U/L Total Protein 7.0 5.7-8.2 g/dL Albumin 4.1 3.2-4.8 g/dL Plasma/Serum Blood Alcohol < 3.0 <10 mg/dL Urine Color Brown H Yellow Urine Clarity Ex.turbid Clear Urine pH 5.5 5.0-9.0 Urine Specific [place] 1.013 1.001-1.035 Urine Protein 2+ H Negative Urine Ketones Negative Negative Urine Blood 3+ H Negative /uL Urine Nitrite Negative Negative Urine Bilirubin Negative Negative Urine Urobilinogen Normal Negative mg/dL Urine Leukocyte Esterase 2+ Negative /uL Urine RBC 77 0 - 3 /hpf Urine WBC Clumps Present None Seen /hpf Urine Microscopic WBC 4311 H 0-3 /HPF Urine Squamous Epithelial Cells Few <5 /hpf Urine Bacteria None seen None Seen /hpf Urine Glucose Normal Normal mg/dL Urine Opiates Screen Neg NEGATIVE Urine Fentanyl Screen Neg NEGATIVE Urine Barbiturates Screen Neg NEGATIVE Urine Phencyclidine Screen Neg NEGATIVE Urine Amphetamines Screen Neg NEGATIVE Urine Benzodiazepines Screen Neg NEGATIVE Urine Cocaine Screen Neg NEGATIVE Urine Cannabinoids Screen Pos NEGATIVE PATIENT: KELLEY MERCHANT ACCT: [id number] UNIT: [id number] : 1955 LOC: ER ROOM / BED: / AGE / SEX: 70 / M ADM STATUS: REG ER SERVICE 44 ORDERING PHYSICIAN: DANISHA YAN MD PROCEDURE(s): CXRP - CHEST PORTABLE REASON: central line placement ORDER NUMBER(s): [id number], ACCESSION NUMBER(s): [id number] CHEST RADIOGRAPH Indication: central line placement Technique: Single frontal view of the chest was obtained COMPARISON: XY CHEST XRAY 1 VIEW on DOS: 05/20/24, XY CHEST XRAY 1 VIEW on DOS: 05/19/24, XY CHEST PORTABLE on DOS: 05/18/24, XY CHEST XRAY 1 VIEW on DOS: 05/17/24, XY CHEST XRAY 1 VIEW on DOS: 05/15/24 FINDINGS: Lines and Tubes: Right-sided central venous catheter is malpositioned with catheter coursing up the internal jugular vein. Repositioning is recommended. Lungs: Clear Pleura: No effusion. No pneumothorax. Cardiomediastinal contours: Unremarkable Bones: Unremarkable IMPRESSION: 1. Malpositioned right-sided central venous catheter. 2. Repositioning is recommended. ORDERING PHYSICIAN: DANISHA YAN MD PROCEDURE(s): CXRP - CHEST PORTABLE REASON: central line placement ORDER NUMBER(s): [id number], ACCESSION NUMBER(s): [id number] CHEST RADIOGRAPH Indication: central line placement Technique: Single frontal view of the chest was obtained COMPARISON: XY CHEST PORTABLE on DOS: 07/15/25, XY CHEST XRAY 1 VIEW on DOS: 05/20/24, XY CHEST XRAY 1 VIEW on DOS: 05/19/24, XY CHEST PORTABLE on DOS: 05/18/24, XY CHEST XRAY 1 VIEW on DOS: 05/17/24 FINDINGS: Right-sided central line with tip near the cavoatrial junction. Cardiac silhouette is borderline in size. No overt pulmonary edema. Lungs and pleural space is generally clear. No pneumothorax or significant pleural effusion. IMPRESSION: Right-sided central line terminating near the cavoatrial junction. SEPSIS Sepsis Screen Date sepsis recognized/suspect: Jul 15, 2025 Time Sepsis recognized/suspect: 2201 Recent Procedure: No On Antibiotic Therapy: No Respiratory Rate >20: Yes Heart Rate >90: Yes Temp<36 C (96.8 F) or >38.3 C: No SBP <90 or MAP <65 mmHG: Yes New Acute Mental Status Change: Yes Is the patient on CPAP, BIPAP,: No Physician Orders Electrocardigram (07/15/25 20:59) Electrocardigram (07/15/25 23:59) Head Without Contrast (07/15/25 21:07) Technical Agronomist (07/15/25 21:07) Technical Agronomist (07/15/25 21:19) Blood Culture (07/15/25 21:19) Norepinephrine 8 Mg/250ml Kit (Levophed) (07/15/25 21:45) Central Line (07/15/25 ) Chest Portable (07/15/25 22:45) Chest Portable (07/15/25 23:45) Communication Order (07/15/25 23:54) Complete Blood Count (07/16/25 04:00) Comprehensive Metabolic Panel (07/16/25 04:00) * Cardiology Consult (07/16/25 02:06) Aspirin Chewable Tablet (07/16/25 10:00) Atorvastatin (Lipitor) (07/16/25 22:00) Piperacillin-Tazob 3.375gm (Zosyn 3.375g (07/16/25 06:00) Albuterol Medneb (Ventolin Medneb) (07/16/25 02:15) Famotidine Injection (Pepcid Injection) (07/16/25 10:00) Consistent Carb(Ccho)Diabetes (07/16/25 Breakfast) Glucose Blood (Accu-Chek Comfort Curve T (07/16/25 07:00) Insulin R (Human) (Insulin R) (07/16/25 07:00) Dextrose 50% Syringe (07/16/25 02:15) Allergies (07/16/25 02:06) Code Status (07/16/25 02:06) Sodium Chloride 0.9% (07/16/25 02:15) Oxygen Per Hour (07/16/25 02:06) Ondansetron Hcl (Zofran) (07/16/25 02:15) Docusate Sodium Capsule (Colace Capsule) (07/16/25 02:15) Fall Risk Precautions In Place QSHIFT (07/16/25 02:06) Complete Blood Count (07/17/25 04:00) Comprehensive Metabolic Panel (07/17/25 04:00) Condition: Serious (07/16/25 02:06) Acetaminophen Tablet (Tylenol Tablet) (07/16/25 02:15) Maintain Bed Rest (07/16/25 02:06) Sequential Compression Device (07/16/25 ) Admit (07/16/25 02:43) Nitroglycerin Sublingual (Ntrostat Subli (07/16/25 02:45) Morphine Sulfate Injection (07/16/25 02:45) Stat Ekg For Chest Pain (07/16/25 02:43) Notify Md Of Changes From Base (07/16/25 02:43) Molding Associate For 24 Hours (07/16/25 02:43) Emergency Dysrhythmia Protocol (07/16/25 02:43) Rhythm Strips Once Every Shift (07/16/25 02:43) Oxygen By Nasal Cannula (07/16/25 02:43) Vital Signs Date Time Temp Pulse Resp B/P (MAP) Pulse Ox O2 Delivery O2 Flow Rate FiO2 07/16/25 00:40 112/67 07/16/25 00:35 181/89 07/16/25 00:30 125/71 07/16/25 00:20 108/57 07/16/25 00:00 35 07/16/25 00:00 54 9 73/54 (60) 94 07/16/25 00:00 73/54 07/15/25 23:46 39 8 66/40 (49) 97 07/15/25 23:31 48 11 87/66 (73) 97 07/15/25 23:15 47 9 69/45 (53) 95 07/15/25 23:00 37 11 67/47 (54) 98 07/15/25 22:46 46 7 70/39 (49) 96 07/15/25 22:01 38 8 91/58 (69) 95 07/15/25 21:43 34 8 89/62 (71) 96 07/15/25 21:24 39 8 81/55 (64) 99 07/15/25 21:19 56 07/15/25 21:15 97.9 49 6 85/46 (59) 98 97.9 07/15/25 21:15 49 6 98 Room Air* 0 21 07/15/25 20:56 56 07/15/25 20:56 93.2 56 17 91/56 99 93.2 Laboratory Tests Test 07/15/25 21:25 07/15/25 21:39 07/16/25 00:10 White Blood Count 12.5 10^3/uL (4.4-10.8) H Lactic Acid Level 2.1 mmol/L (0.4-2.0) *H 0.9 mmol/L (0.4-2.0) Medications Medications Dose Ordered Sig/Rosmery Route Start Time Stop Time Status Last Admin Dose Admin Atropine Sulfate 1 mg ONCE ONCE IV 07/16/25 00:30 07/16/25 00:31 DC 07/16/25 00:26 1 MG Norepinephrine Bitartrate 250 ml @ 3.75 mls/hr Q24H IV 07/15/25 21:45 07/16/25 00:00 11.25 MLS/HR Piperacillin Sod/ Tazobactam Sod 100 ml @ 100 mls/hr ONCE ONCE IV 07/15/25 21:45 07/15/25 22:44 DC 07/15/25 22:49 100 MLS/HR Sodium Chloride 1,000 ml @ 60 mls/hr [id number] IV 07/16/25 02:15 07/16/25 02:31 60 MLS/HR Sodium Chloride 1,000 ml @ 1,000 mls/hr Q1H ONCE IVB 07/15/25 21:30 07/15/25 22:29 DC 07/15/25 21:47 1,000 MLS/HR Sodium Chloride 2,100 ml @ 2,100 mls/hr ONCE ONCE IV 07/15/25 21:45 07/15/25 22:44 DC 07/16/25 00:28 2,100 MLS/HR Assessment/Plan Assessment/Plan Symptomatic bradycardia Suprapubic catheter Pyelonephritis Metabolic encephalopathy UTI (urinary tract infection) Sepsis, unspecified organism Generalized weakness Plan 1. Admit to intensive care unit 2. Breathing treatment 3. Pain control management 4. IV antibiotic management 5. Management of fluids and electrolytes 6. Consultation for cardiology/hospitalist 7. Diagnostic test head CT 8. DVT prophylaxis-on SCDs 9. Repeat labs CBC, CMP in a.m. 10. Home medication reviewed and reconciled 11. Continue with current medical management 12. Treatment plan discussed with patient and RN. Patient will need reinstatement of information given mental status. Plan discussed with: Patient, Other (RN) My Orders Orders - HANNAH VÁZQUEZ DNP Procedure Category Date Status Time Complete Blood Count LAB 07/16/25 Logged 04:00 Comprehensive LAB 07/16/25 Logged Metabolic Panel 04:00 * Cardiology Consult CONS 07/16/25 Transmitted 02:06 Aspirin Chewable PHA 07/16/25 In Process Tablet 10:00 Atorvastatin (Lipitor) PHA 07/16/25 In Process 22:00 Piperacillin-Tazob PHA 07/16/25 In Process 3.375gm (Zosyn 3.375g 06:00 Albuterol Medneb PHA 07/16/25 In Process (Ventolin Medneb) 02:15 Famotidine Injection PHA 07/16/25 In Process (Pepcid Injection) 10:00 Consistent DIET 07/16/25 Transmitted Carb(Ccho)Diabetes Breakfast Glucose Blood PHA 07/16/25 In Process (Accu-Chek Comfort 07:00 Insulin R (Human) PHA 07/16/25 In Process (Insulin R) 07:00 Dextrose 50% Syringe PHA 07/16/25 In Process 02:15 Allergies [place] 07/16/25 In Process 02:06 Code Status CODE 07/16/25 Transmitted 02:06 Sodium Chloride 0.9% PHA 07/16/25 In Process 02:15 Oxygen Per Hour RT 07/16/25 Transmitted 02:06 Ondansetron Hcl PHA 07/16/25 In Process (Zofran) 02:15 Docusate Sodium PHA 07/16/25 In Process Capsule (Colace 02:15 Fall Risk Precautions [place] 07/16/[address] 02:06 Complete Blood Count LAB 07/17/25 Verified 04:00 Comprehensive LAB 07/17/25 Verified Metabolic Panel 04:00 Condition: Serious [place] 07/16/25 In Process 02:06 Acetaminophen Tablet [facility] 07/16/25 In Process (Tylenol Tablet) 02:15 Maintain Bed Rest [facility] 07/16/25 In Process 02:06 Sequential [facility] 07/16/25 In Process Compression Device Admit ADMIT 07/16/25 Verified 02:43 Nitroglycerin [facility] 07/16/25 Verified Sublingual (Ntrostat 02:45 Morphine Sulfate [facility] 07/16/25 Verified Injection 02:45 Stat Ekg For Chest [facility] 07/16/25 Verified Pain 02:43 Notify Md Of Changes [facility] 07/16/25 Verified From Base 02:43 Molding Associate For [facility] 07/16/25 Verified 24 Hours 02:43 Emergency Dysrhythmia [facility] 07/16/25 Verified Protocol 02:43 Rhythm Strips Once [facility] 07/16/25 Verified Every Shift 02:43 Oxygen By Nasal 07/16/25 Verified Cannula 02:43 Problem List: (1) Symptomatic bradycardia (2) Suprapubic catheter (3) Pyelonephritis (4) Metabolic encephalopathy (5) UTI (urinary tract infection) (6) Sepsis, unspecified organism (7) Generalized weakness Date of Service: Jul 16, 2025 Billing Provider: HANNAH VÁZQUEZ DNP Common Visit Codes: [id number] INP/OBS CARE (HIGH) HANNAH VÁZQUEZ DNP Jul 16, 2025 03:04
--- NOTE | 2025-07-16 03:07 | DVH ---
EXAM: CT HEAD WITHOUT CONTRAST INDICATION: ALOC TECHNIQUE: CT of the head without intravenous contrast. Radiation Dose : 1. Head: CT Dose: CTDI volume is 65.77 mGy. Dose-length product is 2590.09 mGy*cm The dose indicators for CT are the volume Computed Tomography (CT) Dose Index (CTDIvol) and the Dose Length Product (DLP), and are measured in units of mGy and mGy-cm, respectively. These indicators are not patient dose, but values generated from the CT scanner acquisition factors. The report includes radiation exposure data for exposures received during this examination. COMPARISON: CT HEAD WITHOUT CONTRAST on DOS: 05/10/24, MRI BRAIN HEAD WO CONTRAST on DOS: 03/09/24, CT HEAD WITHOUT CONTRAST on DOS: 03/05/24 FINDINGS: There is no evidence of acute intracranial hemorrhage, extra-axial collection, mass effect, midline shift, herniation or hydrocephalus. The ventricles, sulci and cisterns are age appropriate. The hodges-white differentiation is intact. Patchy periventricular and subcortical white matter hypoattenuation is nonspecific but may be related to small vessel ischemic disease. Pansinusitis. The mastoid air cells are clear. The surrounding soft tissues and osseous structures are unremarkable. IMPRESSION: 1. No acute intracranial abnormality. 2. Pansinusitis. Radiation optimization: All CT scans at this facility use at least one of these dose optimization techniques: automated exposure control mA and/or kV adjustment per patient size (includes targeted exams where dose is matched to clinical indication) or iterative reconstruction.
[2025-07-16 04:06] VITALS: BP 130/60; PULSE 63; RESP 12; TEMP 97.5; O2SAT 95
[2025-07-16] MEDS: PIPERACILLIN-TAZOB 3.375GM 100 ML IV SCH (05:34)
[2025-07-16] MEDS: InsuLIN REG 1unit/0.01ml Soln (100units/ml) SC SCH (06:35)
[2025-07-16] MEDS: ACCU-CHEK COMFORT CURVE STRIP VI SCH (06:35)
[2025-07-16 06:47] LABS: Hematocrit 32.7 % (41.0-53.0); Hemoglobin 11.0 g/dL (13.5-17.5); Mean Corpuscular Hemoglobin 27.0 pg (28.0-32.0); Mean Corpuscular Volume 79.9 fL (80.0-100.0); Nucleated Red Blood Cells % 0.0 %
[2025-07-16 06:58] VITALS: O2SAT 96
[2025-07-16 07:03] LABS: Alanine Aminotransferase 12 U/L (7-40); Albumin 3.7 g/dL (3.2-4.8); Anion Gap 8 (5-15); BUN/Creatinine Ratio 42.6 (10.0-20.0); Blood Urea Nitrogen 20 mg/dL (9-23); Calcium 9.2 mg/dL (8.7-10.4); Carbon Dioxide 26 mmol/L (20-31); Chloride 107 mmol/L (98-107); Potassium 4.2 mmol/L (3.5-5.1); Sodium 141 mmol/L (136-145); Total Protein 6.3 g/dL (5.7-8.2)
[2025-07-16 07:04] LABS: Bilirubin, Total 0.3 mg/dL (0.2-1.0)
[2025-07-16 07:05] LABS: Alkaline Phosphatase 43 U/L (46-116); Glucose 110 mg/dL (74-106)
[2025-07-16 11:47] VITALS: PULSE 53; RESP 17; O2SAT 98
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
[2025-07-16] MEDS: FAMOTIDINE (10MG/ML) 2ML VL IV SCH (14:52)
[2025-07-16 18:32] VITALS: O2SAT 96
[2025-07-16 20:00] VITALS: PULSE 58; PULSE 59; RESP 18
[2025-07-16 21:00] VITALS: BP 157/88; PULSE 60; RESP 18; TEMP 98; O2SAT 98
[2025-07-16] MEDS: ATORVASTATIN 20 MG TAB PO SCH (21:55)
[2025-07-17] VITALS (10 sets, daily range): BP systolic 155–205; BP diastolic 85–113; PULSE 54–72; RESP 16–19; TEMP 97.3–98.8; O2SAT 97–99
[2025-07-17] MEDS: hydrALAZINE HCL 20 MG/ML VL IV PRN ×2 (00:44→13:17)
[2025-07-17] MEDS: ACETAMINOPHEN 325 MG TAB PO PRN (00:52)
[2025-07-17 06:14] LABS: Hematocrit 34.8 % (41.0-53.0); Hemoglobin 11.5 g/dL (13.5-17.5); Mean Corpuscular Hemoglobin 26.6 pg (28.0-32.0); Mean Corpuscular Volume 80.7 fL (80.0-100.0); Nucleated Red Blood Cells % 0.2 %
[2025-07-17 06:41] LABS: Alanine Aminotransferase 13 U/L (7-40); Albumin 4.1 g/dL (3.2-4.8); Alkaline Phosphatase 47 U/L (46-116); Anion Gap 10 (5-15); BUN/Creatinine Ratio 23.5 (10.0-20.0); Bilirubin, Total 0.4 mg/dL (0.2-1.0); Calcium 9.6 mg/dL (8.7-10.4); Carbon Dioxide 23 mmol/L (20-31); Chloride 103 mmol/L (98-107); Glucose 86 mg/dL (74-106); Sodium 136 mmol/L (136-145); Total Protein 6.9 g/dL (5.7-8.2)
[2025-07-17 06:43] LABS: Blood Urea Nitrogen 8 mg/dL (9-23); Potassium 3.4 mmol/L (3.5-5.1)
--- NOTE | 2025-07-17 09:18 | DVHSR ---
APPROVED REPORT EXAM: Two-dimensional and M-mode echocardiogram with Doppler and color Doppler. Blood Pressure: 152/66 mmHg INDICATION bradycardia hx of HFmrEF RISK FACTORS Obesity: Height: 69, Weight: 160 DIMENSIONS LVDd 3.9 (3.8-5.7cm) LA (2D) 2.4 (1.9-4.0cm) Aortic Root 3.8 (2.0-3.7cm) LVDs 2.9 (2.5-4.0cm) LA (MM) (1.9-4.0cm) Aortic Cusp Exc 1.7 (1.5-2.0cm) EF (%) 50.0 (55-70%) Rt. Atrium 3.5 (1.9-4.0cm) Asc. Aorta 3.4 cm IVSd 1.1 (0.7-1.1cm) RV (D) 2.9 (1.8-2.4cm) PWd 1.3 (0.7-1.1cm) Mitral Valve Mitral Mitral Stenosis E wave 0.71m/s MV Mean GR. mmHg A wave 0.72m/s MV Peak GR. mmHg E/A ratio 1.0 2D MVA cm2 DECEL Time 231ms PRESS 1/2 Time ms Aortic Valve Aortic Valve Aortic Stenosis V1 0.82m/s AO Mean GR. 5mmHg V2 1.72m/s AO Peak GR. 12mmHg LVOT Diameter 2.5 (1.8-2.4cm) Doppler NANCY 2.34cm2 Pulmonic Valve V2 0.76m/s Tricuspid Valve TR Velocity 2.37m/s RVSP 25mmHg Other Information Quality : Technically Limited Rhythm : Technically limited study due to body habitus.patient position. PT UNABLE TO MOVE LEANING ON RIGHT SIDE Conclusion lvef 55% moderate c oncentric LVH limited quality study
[2025-07-17] MEDS: hydrALAZINE HCL 20 MG/ML VL ONE (13:20)
[2025-07-17] MEDS: LISINOPRIL 20 MG TAB PO ONE (15:21)
[2025-07-17] MEDS: HYDROcodone-ACET 5/325MG TAB PO PRN (15:22)
--- NOTE | 2025-07-17 15:23 | DVHPN2 ---
Subjective I am assuming the care of the patient from today onwards. Patient was here for symptomatic bradycardia currently improved. Changes from previous H/P or p: No Changes Eyes: No Pain, No Vision change, No Conjunctivae inflammation, No Eyelid inflammation, No Other, No Redness ENT: No Ear pain, No Ear discharge, No Nose pain, No Nose discharge, No Nose congestion, No Mouth pain, No Mouth swelling, No Throat pain, No Throat swelling, No Other Cardiovascular: No Chest Pain, No Palpitations, No Orthopnea, No Paroxysmal Noc. Dyspnea, No Edema, No Lt Headedness, No Other Respiratory: No Cough, No Dry, No Shortness of breath, No SOB with excertion, No Wheezing, No Hemoptysis, No Pleuritic Pain, No Sputum, No Other Gastrointestinal: No Nausea, No Vomiting, No Abdominal Pain, No Diarrhea, No Constipation, No Melena, No Hematochezia, No Other Genitourinary: No Dysuria, No Frequency, No Incontinence, No Hematuria, No Retention; Other (Suprapubic catheter) Musculoskeletal: No other, No neck pain, No shoulder pain, No arm pain, No back pain, No hand pain, No leg pain, No foot pain Skin: No Rash, No Lesions, No Jaundice, No Bruising, No Other Objective Vitals Vital Signs Date Time Temp Pulse Resp B/P (MAP) Pulse Ox O2 Delivery O2 Flow Rate FiO2 07/17/25 13:17 186/112 07/17/25 13:00 98.0 58 17 99 98.0 07/17/25 07:49 Room Air 07/17/25 07:49 0 21 21 Intake/Output Intake and Output 07/17/25 07:00 Intake Total 900 ml Output Total 2100 ml Balance -1200 ml Intake Oral 800 ml IV Total 100 ml Output Urine Total 2100 ml Exam HEENT pupils are reactive Neck is supple CV is S1-S2 regular rate and rhythm Respiratory diminished breath sounds bases GI positive bowel sounds positive colostomy Extremities patient's has a above-knee amputation bilateral Medications Current Medications Medications Dose Ordered Sig/Rosmery Route Start Time Stop Time Status Last Admin Dose Admin Aspirin 81 mg DAILY PO 07/16/25 10:00 07/17/25 10:14 81 MG Atorvastatin Calcium 10 mg HS PO 07/16/25 22:00 07/16/25 21:55 10 MG Piperacillin Sod/ Tazobactam Sod 100 ml @ 25 mls/hr Q8HR IV 07/16/25 06:00 07/17/25 05:07 25 MLS/HR Albuterol 2.5 mg Q4HPRN PRN NEB 07/16/25 02:15 Famotidine 20 mg DAILY IV 07/16/25 10:00 07/17/25 10:13 20 MG Diagnostic Test (Pha) 1 strip ACHS 07/16/25 07:00 07/17/25 11:30 1 STRIP Insulin Human Regular ACHS SC 07/16/25 07:00 07/16/25 21:54 2 UNITS Dextrose 50 ml UD PRN IV 07/16/25 02:15 Sodium Chloride 1,000 ml @ 60 mls/hr [id number] IV 07/16/25 02:15 07/16/25 19:05 60 MLS/HR Ondansetron HCl 4 mg Q4HP PRN IV 07/16/25 02:15 Docusate Sodium 100 mg BIDPRN PRN PO 07/16/25 02:15 Acetaminophen 650 mg Q6HP PRN PO 07/16/25 02:15 07/17/25 10:25 650 MG Nitroglycerin 0.4 mg Q5MINP PRN SL 07/16/25 02:45 Morphine Sulfate 2 mg Q30M PRN IV 07/16/25 02:45 Hydralazine HCl 10 mg Q4HPRN PRN IV 07/17/25 13:00 07/17/25 13:17 10 MG Lisinopril 20 mg DAILY PO 07/18/25 10:00 Gabapentin 400 mg TID PO 07/17/25 22:00 Metoprolol Tartrate 25 mg BID PO 07/17/25 22:00 Baclofen 20 mg QID PO 07/17/25 18:00 Lactulose 30 ml DAILY PO 07/17/25 22:00 Acetaminophen/ Hydrocodone Bitart 1 tab Q6HPRN PRN PO 07/17/25 15:00 Laboratory Results Laboratory Tests 07/17/25 05:51 Chemistry Test 07/17/25 05:51 Albumin 4.1 g/dL (3.2-4.8) Calcium Level 9.6 mg/dL (8.7-10.4) Total Protein 6.9 g/dL (5.7-8.2) LFT Test 07/17/25 05:51 Alanine Aminotransferase (ALT) 13 U/L (7-40) Alkaline Phosphatase 47 U/L (46-116) Aspartate Amino Transferase (AST) 16 U/L (13-40) Total Bilirubin 0.4 mg/dL (0.2-1.0) Urinalysis Test 07/15/25 00:00 Urine Color Brown (Yellow) H Urine Clarity Ex.turbid (Clear) Urine pH 5.5 (5.0-9.0) Urine Specific [place] 1.013 (1.001-1.035) Urine Protein 2+ (Negative) H Urine Ketones Negative (Negative) Urine Blood 3+ /uL (Negative) H Urine Nitrite Negative (Negative) Urine Bilirubin Negative (Negative) Urine Urobilinogen Normal mg/dL (Negative) Urine Leukocyte Esterase 2+ /uL (Negative) Urine RBC 77 /hpf (0 - 3) Urine WBC Clumps Present /hpf (None Seen) Urine Microscopic WBC 4311 /HPF (0-3) H Urine Squamous Epithelial Cells Few /hpf (<5) Urine Bacteria None seen /hpf (None Seen) Urine Glucose Normal mg/dL (Normal) Microbiology Microbiology Date/Time Source Procedure Growth Status 07/15/25 22:26 Blood Blood Culture - Preliminary NO GROWTH AFTER 24 HOURS OF INCUBATION. Resulted Assessment/Plan Assessment/Plan 70-year-old male with a known history of chronic suprapubic catheter, chronic pain syndrome resolved to the hospital with altered mental status with a GCS of three, status post Narcan found to have 1. Acute metabolic/toxic encephalopathy currently improved 2. Symptomatic bradycardia at 38 currently improved 3. Complicated UTI 4. Sepsis secondary to complicated UTI 5. Quadriplegia 6. Chronic indwelling suprapubic catheter -follow up urine culture, continue IV antibiotics, -pain meds as needed. Plan discussed with: Patient My Orders Orders - CRUZITO MONAE MD Procedure Category Date Status Time Hydralazine Injection PHA 07/17/25 In Process (Apresoline Inject 13:00 Lisinopril Tablet PHA 07/18/25 In Process (Zestril Tablet) 10:00 Gabapentin Capsule PHA 07/17/25 In Process (Neurontin Capsule) 22:00 Metoprolol Tartrate PHA 07/17/25 In Process Tablet (Lopressor Ta 22:00 Baclofen Tablet PHA 07/17/25 In Process (Liorisal Tablet) 18:00 Potassium Er Tablet PHA 07/17/25 In Process (Klor-Con Tablet) 18:00 Lactulose Oral PHA 07/17/25 In Process 22:00 * Surgical Consult CONS 07/17/25 Transmitted Hydrocodone-Acet PHA 07/17/25 In Process 5/325mg Tab ([place] 15:00 Date of Service: Jul 17, 2025 Billing Provider: CRUZITO MONAE MD Common Visit Codes: [id number] INP/OBS CARE(HIGH) CRUZITO MONAE MD Jul 17, 2025 15:23
--- NOTE | 2025-07-17 16:14 | MEDREC ---
[facility] ASP Intervention Section I [facility] Intervention: Review courses of therapy (PLEASE CONSIDER URINE CULTURE IN CASE OF COMPLICATED UTI AND USE OF BROAD SPECTRUM ANTIBIOTIC EMPIRIC THERAPY - PLEASE CONSIDER REVIEW OF THERAPY ACCORDING TO PREVIOUS VISITS CULTURE RESULTS AND TREATMENT) MIKA CASEY PHARMACIST Jul 17, 2025 16:14
[2025-07-17] MEDS: POTASSIUM CHL 20 Meq TABLET PO ONE (18:00)
[2025-07-17] MEDS: BACLOFEN 10 MG TAB PO SCH (18:00)
[2025-07-17] MEDS: METOPROLOL TARTRATE 25 MG TAB PO SCH (21:22)
[2025-07-17] MEDS ORDERED: ATORVASTATIN 20 MG TAB PO ONE (22:00)
[2025-07-17] MEDS ORDERED: GABAPENTIN 300 MG CAP PO SCH (22:00)
[2025-07-17] MEDS: LACTULOSE 20Gm/30ML SOLN PO SCH (22:26)
[2025-07-17] MEDS: GABAPENTIN 400 MG CAP PO SCH (22:27)
[2025-07-18] VITALS (8 sets, daily range): BP systolic 99–153; BP diastolic 58–89; PULSE 43–76; RESP 16–18; TEMP 97.7–98.7; O2SAT 96–99
--- NOTE | 2025-07-18 07:17 | ECG ---
[facility] Test Date: 2025-07-15 Test Time: 20:56:52 Pat Name: KELLEY MERCHANT Department: [facility] ED Room: 0284T B Gender: M Tool Room Machinist: JAIMIE : 1955 Requested By: EMERGENCY EMERGENCY Order Number: [id number] Reading MD: Greg Mccracken Measurements Intervals [place] Rate: 56 P: 28 KS: 250 QRS: -12 QRSD: 87 T: 49 QT: 454 QTc: 439 Interpretive Statements Sinus rhythm Prolonged KS interval Left ventricular hypertrophy Anterior infarct, old Electronically Signed On 07-19-2025 14:59:03 PST by Greg Mccracken Please click the below link to view image of tracing.
[2025-07-18] MEDS: LISINOPRIL 20 MG TAB PO SCH (10:00)
[2025-07-18] MEDS: D5W/SOD CHL 0.9%/KCL 40MEQ 1,000 ML IV ONE (15:00)
--- NOTE | 2025-07-18 15:15 | DVHPN2 ---
Subjective Patient denies any symptoms at this time Reviewed: Care Plan, H&P, Labs, Medications Changes from previous H/P or p: No Changes General: Per HPI Eyes: No Pain, No Vision change, No Conjunctivae inflammation, No Eyelid inflammation, No Other, No Redness ENT: No Ear pain, No Ear discharge, No Nose pain, No Nose discharge, No Nose congestion, No Mouth pain, No Mouth swelling, No Throat pain, No Throat swelling, No Other Cardiovascular: No Chest Pain, No Palpitations, No Orthopnea, No Paroxysmal Noc. Dyspnea, No Edema, No Lt Headedness, No Other Respiratory: No Cough, No Dry, No Shortness of breath, No SOB with excertion, No Wheezing, No Hemoptysis, No Pleuritic Pain, No Sputum, No Other Gastrointestinal: No Nausea, No Vomiting, No Abdominal Pain, No Diarrhea, No Constipation, No Melena, No Hematochezia, No Other Genitourinary: No Dysuria, No Frequency, No Incontinence, No Hematuria, No Retention; Other (Suprapubic catheter) Musculoskeletal: No other, No neck pain, No shoulder pain, No arm pain, No back pain, No hand pain, No leg pain, No foot pain Skin: No Rash, No Lesions, No Jaundice, No Bruising, No Other Objective Vitals Vital Signs Date Time Temp Pulse Resp B/P (MAP) Pulse Ox O2 Delivery O2 Flow Rate FiO2 07/18/25 10:00 76 99/58 07/18/25 09:00 98.3 16 98 98.3 07/18/25 08:00 Room Air* 0 21 Intake/Output Intake and Output 07/18/25 07:00 Intake Total 625 ml Output Total 3700 ml Balance -3075 ml Intake Oral 525 ml IV Total 100 ml Output Urine Total 3700 ml # Bowel Movements 1 General Appearance: Alert, Oriented X3, Cooperative, mild distress HEENT: Atraumatic, PERRLA Lungs: Clear to auscultation, Normal air movement Cardiovascular: Normal S1, Normal S2, Other (Sinus bradycardia) Abdomen: Normal bowel sounds, Soft, No tenderness Genitourinary: Other (Suprapubic catheter) Musculoskeletal: Other (Bilateral AKA) Extremities: No clubbing, No cyanosis, No edema, Normal pulses, No tenderness/swelling Neuro: Normal speech Skin: Dry, Intact Psych/Mental Status: Mental status NL, Mood NL Medications Current Medications Medications Dose Ordered Sig/Rosmery Route Start Time Stop Time Status Last Admin Dose Admin Aspirin 81 mg DAILY PO 07/16/25 10:00 07/18/25 09:47 81 MG Atorvastatin Calcium 10 mg HS PO 07/16/25 22:00 07/17/25 21:22 10 MG Albuterol 2.5 mg Q4HPRN PRN NEB 07/16/25 02:15 Cancel Famotidine 20 mg DAILY IV 07/16/25 10:00 07/18/25 09:47 20 MG Diagnostic Test (Pha) 1 strip ACHS 07/16/25 07:00 07/18/25 11:45 1 STRIP Insulin Human Regular ACHS SC 07/16/25 07:00 07/16/25 21:54 2 UNITS Dextrose 50 ml UD PRN IV 07/16/25 02:15 Ondansetron HCl 4 mg Q4HP PRN IV 07/16/25 02:15 Docusate Sodium 100 mg BIDPRN PRN PO 07/16/25 02:15 Acetaminophen 650 mg Q6HP PRN PO 07/16/25 02:15 07/17/25 10:25 650 MG Nitroglycerin 0.4 mg Q5MINP PRN SL 07/16/25 02:45 Morphine Sulfate 2 mg Q30M PRN IV 07/16/25 02:45 Hydralazine HCl 10 mg Q4HPRN PRN IV 07/17/25 13:00 07/17/25 13:17 10 MG Lisinopril 20 mg DAILY PO 07/18/25 10:00 Baclofen 20 mg QID PO 07/17/25 18:00 07/18/25 11:57 20 MG Lactulose 30 ml DAILY PO 07/17/25 22:00 07/18/25 09:47 30 ML Acetaminophen/ Hydrocodone Bitart 1 tab Q6HPRN PRN PO 07/17/25 15:00 07/18/25 11:57 1 TAB Gabapentin 400 mg TID PO 07/17/25 22:00 07/18/25 05:49 400 MG Meropenem 50 ml @ 17 mls/hr Q8HR IV 07/18/25 22:00 UNV Laboratory Results Laboratory Tests 07/17/25 05:51 Urinalysis Test 07/15/25 00:00 Urine Color Brown (Yellow) H Urine Clarity Ex.turbid (Clear) Urine pH 5.5 (5.0-9.0) Urine Specific [place] 1.013 (1.001-1.035) Urine Protein 2+ (Negative) H Urine Ketones Negative (Negative) Urine Blood 3+ /uL (Negative) H Urine Nitrite Negative (Negative) Urine Bilirubin Negative (Negative) Urine Urobilinogen Normal mg/dL (Negative) Urine Leukocyte Esterase 2+ /uL (Negative) Urine RBC 77 /hpf (0 - 3) Urine WBC Clumps Present /hpf (None Seen) Urine Microscopic WBC 4311 /HPF (0-3) H Urine Squamous Epithelial Cells Few /hpf (<5) Urine Bacteria None seen /hpf (None Seen) Urine Glucose Normal mg/dL (Normal) Microbiology Microbiology Date/Time Source Procedure Growth Status 07/15/25 22:26 Blood Blood Culture - Preliminary NO GROWTH AFTER 48 HOURS OF INCUBATION. Resulted Labs and/or images reviewed: Labs reviewed by me, Image(s) reviewed by me Assessment/Plan Assessment/Plan Impression: -acute metabolic encephalopathy -symptomatic bradycardia -complicated cystitis, rule out MDRO -quadriplegia -bilateral AKA -suprapubic catheter -hypokalemia -primary hypertension Plan: -urine culture -stop Zosyn, start Meropenem given history of ESBL E coli -potassium replete -IV hydration -stop metoprolol tartrate, continue lisinopril -repeat labs in a.m. Total time spent with patient discussing and formulating plan of care: 35 minutes. This medical document was created using an electronic medical record system with [employer] dictation system. Although this document has been carefully reviewed, there may still be some phonetic and typographical errors. These areas are purely typographical due to imperfections of the software programs, and do not reflect any compromise in the patient's medical care. Plan discussed with: Patient, Other (RN) My Orders Orders - KRYSTAL SINGH TABLE SAW OPERATOR Procedure Category Date Status Time Urine Bacterial ALEJANDRINA 07/18/25 Logged Culture 14:49 Meropenem 1gm Ivpb PHA 07/18/25 Logged (Merrem 1gm/50ml) 22:00 D5w/Sod Chl 0.9%/Kcl PHA 07/18/25 Logged 40meq 15:00 Date of Service: Jul 18, 2025 Billing Provider: KRYSTAL SINGH NP Common Visit Codes: [id number] INP/OBS CARE(HIGH) KRYSTAL SINGH NP Jul 18, 2025 15:15
[2025-07-18] MEDS: MEROPENEM 1GM IVPB 50 ML IV SCH (21:54)
[2025-07-19] VITALS (9 sets, daily range): BP systolic 126–154; BP diastolic 76–91; PULSE 44–70; RESP 16–18; TEMP 97.7–98.3; O2SAT 96–100
[2025-07-19 07:09] LABS: Hematocrit 35.6 % (41.0-53.0); Hemoglobin 12.1 g/dL (13.5-17.5); Mean Corpuscular Hemoglobin 26.9 pg (28.0-32.0); Mean Corpuscular Volume 79.6 fL (80.0-100.0); Nucleated Red Blood Cells % 0.3 %
[2025-07-19 07:11] LABS: Anion Gap 10 (5-15); Calcium 9.9 mg/dL (8.7-10.4); Carbon Dioxide 26 mmol/L (20-31); Chloride 105 mmol/L (98-107); Potassium 4.6 mmol/L (3.5-5.1); Sodium 141 mmol/L (136-145)
[2025-07-19 07:17] LABS: BUN/Creatinine Ratio 20.5 (10.0-20.0); Glucose 95 mg/dL (74-106)
[2025-07-19 07:20] LABS: Blood Urea Nitrogen 8 mg/dL (9-23)
--- NOTE | 2025-07-19 11:26 | DVHPN2 ---
Subjective Patient denies any symptoms at this time Reviewed: Care Plan, H&P, Labs, Medications Changes from previous H/P or p: No Changes General: Per HPI Eyes: No Pain, No Vision change, No Conjunctivae inflammation, No Eyelid inflammation, No Other, No Redness ENT: No Ear pain, No Ear discharge, No Nose pain, No Nose discharge, No Nose congestion, No Mouth pain, No Mouth swelling, No Throat pain, No Throat swelling, No Other Cardiovascular: No Chest Pain, No Palpitations, No Orthopnea, No Paroxysmal Noc. Dyspnea, No Edema, No Lt Headedness, No Other Respiratory: No Cough, No Dry, No Shortness of breath, No SOB with excertion, No Wheezing, No Hemoptysis, No Pleuritic Pain, No Sputum, No Other Gastrointestinal: No Nausea, No Vomiting, No Abdominal Pain, No Diarrhea, No Constipation, No Melena, No Hematochezia, No Other Genitourinary: No Dysuria, No Frequency, No Incontinence, No Hematuria, No Retention; Other (Suprapubic catheter) Musculoskeletal: No other, No neck pain, No shoulder pain, No arm pain, No back pain, No hand pain, No leg pain, No foot pain Skin: No Rash, No Lesions, No Jaundice, No Bruising, No Other Objective Vitals Vital Signs Date Time Temp Pulse Resp B/P (MAP) Pulse Ox O2 Delivery O2 Flow Rate FiO2 07/19/25 10:13 127/90 07/19/25 09:00 97.9 67 17 99 97.9 07/18/25 20:00 Room Air* 0 21 Intake/Output Intake and Output 07/19/25 07:00 Intake Total 1315 ml Output Total 3200 ml Balance -1885 ml Intake Oral 1315 ml Output Urine Total 3200 ml General Appearance: Alert, Oriented X3, Cooperative, mild distress HEENT: Atraumatic, PERRLA Lungs: Clear to auscultation, Normal air movement Cardiovascular: Normal S1, Normal S2, Other (Sinus bradycardia) Abdomen: Normal bowel sounds, Soft, No tenderness Genitourinary: Other (Suprapubic catheter) Musculoskeletal: Other (Bilateral AKA) Extremities: No clubbing, No cyanosis, No edema, Normal pulses, No tenderness/swelling Neuro: Normal speech Skin: Dry, Intact Psych/Mental Status: Mental status NL, Mood NL Medications Current Medications Medications Dose Ordered Sig/Rosmery Route Start Time Stop Time Status Last Admin Dose Admin Aspirin 81 mg DAILY PO 07/16/25 10:00 07/19/25 10:13 81 MG Atorvastatin Calcium 10 mg HS PO 07/16/25 22:00 07/18/25 21:54 10 MG Albuterol 2.5 mg Q4HPRN PRN NEB 07/16/25 02:15 Cancel Famotidine 20 mg DAILY IV 07/16/25 10:00 07/19/25 10:13 20 MG Diagnostic Test (Pha) 1 strip ACHS 07/16/25 07:00 07/19/25 05:22 1 STRIP Insulin Human Regular ACHS SC 07/16/25 07:00 07/19/25 00:09 3 UNITS Dextrose 50 ml UD PRN IV 07/16/25 02:15 Ondansetron HCl 4 mg Q4HP PRN IV 07/16/25 02:15 Docusate Sodium 100 mg BIDPRN PRN PO 07/16/25 02:15 Acetaminophen 650 mg Q6HP PRN PO 07/16/25 02:15 07/17/25 10:25 650 MG Nitroglycerin 0.4 mg Q5MINP PRN SL 07/16/25 02:45 Morphine Sulfate 2 mg Q30M PRN IV 07/16/25 02:45 Hydralazine HCl 10 mg Q4HPRN PRN IV 07/17/25 13:00 07/17/25 13:17 10 MG Lisinopril 20 mg DAILY PO 07/18/25 10:00 07/19/25 10:13 20 MG Baclofen 20 mg QID PO 07/17/25 18:00 07/19/25 05:22 20 MG Lactulose 30 ml DAILY PO 07/17/25 22:00 07/19/25 10:13 30 ML Acetaminophen/ Hydrocodone Bitart 1 tab Q6HPRN PRN PO 07/17/25 15:00 07/19/25 10:13 1 TAB Gabapentin 400 mg TID PO 07/17/25 22:00 07/19/25 05:22 400 MG Meropenem 50 ml @ 17 mls/hr Q8HR IV 07/18/25 22:00 07/19/25 05:22 17 MLS/HR Laboratory Results Laboratory Tests 07/19/25 06:30 Chemistry Test 07/19/25 06:30 Calcium Level 9.9 mg/dL (8.7-10.4) Urinalysis Test 07/15/25 00:00 Urine Color Brown (Yellow) H Urine Clarity Ex.turbid (Clear) Urine pH 5.5 (5.0-9.0) Urine Specific [place] 1.013 (1.001-1.035) Urine Protein 2+ (Negative) H Urine Ketones Negative (Negative) Urine Blood 3+ /uL (Negative) H Urine Nitrite Negative (Negative) Urine Bilirubin Negative (Negative) Urine Urobilinogen Normal mg/dL (Negative) Urine Leukocyte Esterase 2+ /uL (Negative) Urine RBC 77 /hpf (0 - 3) Urine WBC Clumps Present /hpf (None Seen) Urine Microscopic WBC 4311 /HPF (0-3) H Urine Squamous Epithelial Cells Few /hpf (<5) Urine Bacteria None seen /hpf (None Seen) Urine Glucose Normal mg/dL (Normal) Microbiology Microbiology Date/Time Source Procedure Growth Status 07/15/25 22:26 Blood Blood Culture - Preliminary NO GROWTH AFTER 72 HOURS OF INCUBATION. Resulted Labs and/or images reviewed: Labs reviewed by me, Image(s) reviewed by me Assessment/Plan Assessment/Plan Impression: -acute metabolic encephalopathy -symptomatic bradycardia -complicated cystitis, rule out MDRO -quadriplegia -bilateral AKA -suprapubic catheter -hypokalemia -primary hypertension Plan: Events: Patient continues to have bradycardia dropping into the 30s. -urine culture pending -continue Meropenem. -potassium replete -IV hydration -continue antihypertensives with lisinopril -start stool softener Total time spent with patient discussing and formulating plan of care: 35 minutes. This medical document was created using an electronic medical record system with [employer] dictation system. Although this document has been carefully reviewed, there may still be some phonetic and typographical errors. These areas are purely typographical due to imperfections of the software programs, and do not reflect any compromise in the patient's medical care. Plan discussed with: Patient, Other (RN) My Orders Orders - KRYSTAL SINGH NP Procedure Category Date Status Time Urine Bacterial ALEJANDRINA 07/18/25 In Process Culture 14:49 Meropenem 1gm Ivpb PHA 07/18/25 In Process (Merrem 1gm/50ml) 22:00 Date of Service: Jul 19, 2025 Billing Provider: KRYSTAL SINGH NP Common Visit Codes: [id number] INP/OBS CARE(HIGH) KRYSTAL SINGH NP Jul 19, 2025 11:26
--- NOTE | 2025-07-19 12:35 | DVHPN2 ---
Consult Progress Note Date Seen: Jul 19, 2025 Subjective Review of Systems: CVS:Normal, RESPIRATORY:Normal, NEURO:Normal Objective vital signs Vital Sign Date Time Temp Pulse Resp B/P (MAP) Pulse Ox O2 Delivery O2 Flow Rate FiO2 07/19/25 10:13 127/90 07/19/25 09:00 97.9 67 17 99 97.9 07/18/25 20:00 Room Air* 0 21 Total Intake and Output 07/18/25 07/18/25 07/19/25 15:00 23:00 07:00 Intake Total 1115 ml 200 ml Output Total 1200 ml 2000 ml Balance -85 ml -1800 ml medications Current Medications Medications Dose Ordered Sig/Rosmery Route Start Time Stop Time Status Last Admin Dose Admin Aspirin 81 mg DAILY PO 07/16/25 10:00 07/19/25 10:13 81 MG Atorvastatin Calcium 10 mg HS PO 07/16/25 22:00 07/18/25 21:54 10 MG Albuterol 2.5 mg Q4HPRN PRN NEB 07/16/25 02:15 Cancel Famotidine 20 mg DAILY IV 07/16/25 10:00 07/19/25 10:13 20 MG Diagnostic Test (Pha) 1 strip ACHS 07/16/25 07:00 07/19/25 11:30 1 STRIP Insulin Human Regular ACHS SC 07/16/25 07:00 07/19/25 12:14 3 UNITS Dextrose 50 ml UD PRN IV 07/16/25 02:15 Ondansetron HCl 4 mg Q4HP PRN IV 07/16/25 02:15 Acetaminophen 650 mg Q6HP PRN PO 07/16/25 02:15 07/17/25 10:25 650 MG Nitroglycerin 0.4 mg Q5MINP PRN SL 07/16/25 02:45 Morphine Sulfate 2 mg Q30M PRN IV 07/16/25 02:45 Hydralazine HCl 10 mg Q4HPRN PRN IV 07/17/25 13:00 07/17/25 13:17 10 MG Lisinopril 20 mg DAILY PO 07/18/25 10:00 07/19/25 10:13 20 MG Baclofen 20 mg QID PO 07/17/25 18:00 07/19/25 12:15 20 MG Lactulose 30 ml DAILY PO 07/17/25 22:00 07/19/25 10:13 30 ML Acetaminophen/ Hydrocodone Bitart 1 tab Q6HPRN PRN PO 07/17/25 15:00 07/19/25 10:13 1 TAB Gabapentin 400 mg TID PO 07/17/25 22:00 07/19/25 05:22 400 MG Meropenem 50 ml @ 17 mls/hr Q8HR IV 07/18/25 22:00 07/19/25 05:22 17 MLS/HR Docusate Sodium 100 mg BID PO 07/19/25 22:00 Examination: GENERAL:Abnormal (Quadraplegic), LUNGS:Normal, CVS:Normal (NSR 60s bpm), NEURO:Normal laboratory and microbiology Laboratory Tests 07/19/25 06:30 Test 07/19/25 06:30 Range/Units Serum Glucose 95 74-106 mg/dL Problem List/Assessment/Plan Problem List/Assessment/Plan Asymptomatic bradycardia Sinus bradycardia with first-degree AV block Acute metabolic encephalopathy Hypotension, resolved with acute vasopressor infusion Chronic compensated HFrecEF Positive cannabis Hypertension Hyperlipidemia Type 2 diabetes Quadriplegic Chronic pain syndrome * Transthoracic echocardiogram revealed LVEF 55% with moderate concentric LVH Plan/Recommendation (Dr. El ) Re-consulted for persistent sinus bradycardia. Overnight events revealed a sinus bradycardia rhythm as low as 36 bpm with no evidence of atrioventricular blocks or sinus pauses. The patient denies any symptoms including dizziness, lightheadedness, SOB, or chest discomfort. He was last medicated with metoprolol on 07/17/2025. Recommendations include glucagon IV, avoidance of AV antoinette blocking agents, and TSH level. Given the patient's lack of symptoms and quadriplegic status, we recommend conservative management with no surgical interventions advised at this time. Kindly call if in need to re-consult. Thank you for allowing us to participate in this patient's care. This medical document was created using an electronic medical record system with voice recognition software and computerized dictation system. Although this document has been carefully reviewed, there might still be some phonetic and typographical errors. Occasional wrong-word or ``sound-alike substitutions may have occurred due to the inherent limitations of voice recognition software. These areas are purely typographical due to imperfections of the software programs and do not reflect any compromise in the patient's medical care. Please read the chart carefully and recognize, using context, where these substitutions have occurred. Plan discussed with: Patient, Other Date of Service: Jul 19, 2025 Billing Provider: ROSIO RAVI Cardiology Common Codes: [id number] HOSP CARE(High ROSIO RAVI Jul 19, 2025 12:34
[2025-07-19] MEDS: GLUCAGON EMERG KIT 1mg/1ml IV ONE (12:48)
[2025-07-19] MEDS: BACLOFEN 10 MG TAB PO SCH (22:22)
[2025-07-19] MEDS: DOCUSATE SOD 100 MG CAP PO SCH (22:23)
[2025-07-20] VITALS (8 sets, daily range): BP systolic 131–165; BP diastolic 79–87; PULSE 41–75; RESP 16–22; TEMP 97.2–98.4; O2SAT 99–100
[2025-07-20] MEDS ORDERED: CIPR500T4 PO (09:59)
--- NOTE | 2025-07-20 10:04 | DVHDS2 ---
Discharge Summary Date of Admission Jul 16, 2025 at 02:43 Date of Discharge: Jul 20, 2025 Admitting Diagnosis Symptomatic bradycardia Labs/Diagnostic Data: Laboratory Results Test 07/20/25 06:20 07/19/25 06:30 07/17/25 05:51 07/16/25 00:10 POC Glucose 88 mg/dl (70-106) White Blood Count 4.4 10^3/uL (4.4-10.8) Red Blood Count 4.48 10^6/uL (4.5-5.90) Hemoglobin 12.1 g/dL (13.5-17.5) Hematocrit 35.6 % (41.0-53.0) Mean Corpuscular Volume 79.6 fL (80.0-100.0) Mean Corpuscular Hemoglobin 26.9 pg (28.0-32.0) Mean Corpuscular Hemoglobin Concent 33.8 g/dL (32.0-36.0) Red Cell Distribution Width 16.3 % (11.8-14.3) Platelet Count 255 10^3/uL (140-450) Mean Platelet Volume 7.5 fL (6.9-10.8) Neutrophils (%) (Auto) 43.8 % (37.0-80.0) Lymphocytes (%) (Auto) 44.2 % (10.0-50.0) Monocytes (%) (Auto) 7.7 % (0.0-12.0) Eosinophils (%) (Auto) 3.8 % (0.0-7.0) Basophils (%) (Auto) 0.5 % (0.0-2.0) Neutrophils # (Auto) 1.9 10 ^3/uL (1.6-8.6) Lymphocytes # (Auto) 2.0 10 ^3/uL (0.4-5.4) Monocytes # (Auto) 0.3 10 ^3/uL (0-1.3) Eosinophils # (Auto) 0.2 10 ^3/uL (0-0.8) Basophils # (Auto) 0 10 ^3/uL (0-0.2) Nucleated Red Blood Cells 0.3 % Sodium Level 141 mmol/L (136-145) Potassium Level 4.6 mmol/L (3.5-5.1) Chloride Level 105 mmol/L (98-107) Carbon Dioxide Level 26 mmol/L (20-31) Anion Gap 10 (5-15) Blood Urea Nitrogen 8 mg/dL (9-23) Creatinine 0.39 mg/dL (0.700-1.30) Glomerular Filtration Rate Calc 120 mL/min (>90) BUN/Creatinine Ratio 20.5 (10.0-20.0) Serum Glucose 95 mg/dL (74-106) Calcium Level 9.9 mg/dL (8.7-10.4) Thyroid Stimulating Hormone (TSH) 0.71 uIU/mL (0.55-4.78) Total Bilirubin 0.4 mg/dL (0.2-1.0) Aspartate Amino Transferase (AST) 16 U/L (13-40) Alanine Aminotransferase (ALT) 13 U/L (7-40) Alkaline Phosphatase 47 U/L (46-116) Total Protein 6.9 g/dL (5.7-8.2) Albumin 4.1 g/dL (3.2-4.8) Lactic Acid Level 0.9 mmol/L (0.4-2.0) Troponin I High Sensitivity 17 ng/L (</=54) Test 07/15/25 21:25 07/15/25 00:00 Magnesium Level 2.1 mg/dL (1.6-2.6) Plasma/Serum Blood Alcohol < 3.0 mg/dL (<10) Urine Color Brown (Yellow) Urine Clarity Ex.turbid (Clear) Urine pH 5.5 (5.0-9.0) Urine Specific [place] 1.013 (1.001-1.035) Urine Protein 2+ (Negative) Urine Ketones Negative (Negative) Urine Blood 3+ /uL (Negative) Urine Nitrite Negative (Negative) Urine Bilirubin Negative (Negative) Urine Urobilinogen Normal mg/dL (Negative) Urine Leukocyte Esterase 2+ /uL (Negative) Urine RBC 77 /hpf (0 - 3) Urine WBC Clumps Present /hpf (None Seen) Urine Microscopic WBC 4311 /HPF (0-3) Urine Squamous Epithelial Cells Few /hpf (<5) Urine Bacteria None seen /hpf (None Seen) Urine Glucose Normal mg/dL (Normal) Urine Opiates Screen Neg (NEGATIVE) Urine Fentanyl Screen Neg (NEGATIVE) Urine Barbiturates Screen Neg (NEGATIVE) Urine Phencyclidine Screen Neg (NEGATIVE) Urine Amphetamines Screen Neg (NEGATIVE) Urine Benzodiazepines Screen Neg (NEGATIVE) Urine Cocaine Screen Neg (NEGATIVE) Urine Cannabinoids Screen Pos (NEGATIVE) Other Laboratory Tests 07/19/25 06:30 Brief Hx & Hospital Course: History of Present Illness The patient is a 68-year-old male quadriplegic with past medical history of asthma, GERD, diabetes mellitus, [place], and hypertension who presented to [facility] ED for evaluation of altered level of consciousness. As reported by family patient was unresponsive at bedside since 3:00 p.m. so EMS were called. When EMS arrived on the scene, the patient's GCS was 3 and was given Narcan 0.5 mg, GCS improved to 6, EKG showed ST changes, patient remains unresponsive to verbal stimuli upon arrival to the ED. Patient was seen and evaluated in the ED, laboratory data shows WBC 12.5, hemoglobin 12.4, hematocrit 28.1, platelets 233, sodium 134, potassium 5.0, BUN 26, creatinine 1.01, GFR 81, glucose 103, calcium 9.9, troponin 22, lactic acid 2.1 trending down to 0.9, blood pressure 70/39 trending up to 112/67, heart rate 38, temperature 97.9 F, O2 saturation 95% on oxygen. Urinalysis positive for urinary tract infection. Chest x-ray revealing malpositioned right-sided central venous catheter recommending repositioning; chest x-ray revealing right-sided central line terminating near the cavoatrial junction. Patient was started on IV antibiotic regimen Zosyn, please see medication orders section in the computer. On my assessment, patient remains altered, no diaphoresis, shortness of breaths, diarrhea, nausea, vomiting, fever, no chills. Patient was admitted for further evaluation and medical management. Course of hospitalization: Patient's blood pressure normalized, with the patient being transferred to telemetry floor. Patient continued to have periods of sinus bradycardia without hypotension or patient having any symptoms. Cardiology consultation was obtained. At this time all beta blockers we will be held. Blood culture negative. Urine culture with Enterococcus faecalis. White blood cell count has normalized. Patient has been cleared for discharge from Cardiology standpoint. Patient will be discharged home on ciprofloxacin 500 mg p.o. b.i.d. for seven days. He states he has an appointment with his PCP, Dr. Medel on July 31. At that time he is instructed to follow up with a referral for a surgeon if he is concerned about his intermittent prolapse from his colostomy. Patient was agreeable with discharge plan. All questions answered. Physical examination General: Alert and Oriented x3. No acute distress. Well-nourished. Eyes: EOMI. Anicteric. HENT: Moist mucous membranes. Lungs: Clear to auscultation bilaterally. No accessory muscle use. Cardiovascular: Regular rate and rhythm. No murmur. No JVD. Abdomen: Soft, non-tender and non-distended. No palpable masses. Extremities: No edema. Non-tender. Bilateral AKA Skin: No rashes or lesions. Warm. Neurologic: No focal neurological deficits. CN II-XII grossly intact, but not individually tested. Psychiatric: Cooperative. Appropriate mood and affect. Total time spent with patient discussing and formulating plan of care: 35 minutes. This medical document was created using an electronic medical record system with [employer] dictation system. Although this document has been carefully reviewed, there may still be some phonetic and typographical errors. These areas are purely typographical due to imperfections of the software programs, and do not reflect any compromise in the patient's medical care. Consults/Reason for consult Cardiology: Bradycardia Condition at Discharge: Guarded Final Diagnosis/Problems List Metabolic encephalopathy secondary to complicated cystitis and bradycardia -acute metabolic encephalopathy -symptomatic bradycardia -complicated cystitis, rule out MDRO -quadriplegia -bilateral AKA -suprapubic catheter -hypokalemia -primary hypertension Discharge Disposition: Home Discharge Instruct/Medications Diet: Cardiac 2g Na,low cholest Activity: No Restrictions, As Tolerated Follow Up/Referral: With PCP Dr. Medina as scheduled appointment on July 31 Continue all previous home medications Medications: Ciprofloxacin 500 mg p.o. b.i.d. times seven days Scheduled Albuterol Sulfate (Albuterol Sulfate Hfa), 2 PUFF INH Q4-6HR PRN, (Reported) Aspirin (Aspir-Low), 81 MG PO DAILY, (Reported) Atorvastatin Calcium (Atorvastatin Calcium), 1 TAB PO DAILY, (Reported) Baclofen (Baclofen), 1 TAB PO QID, (Reported) Ciprofloxacin Hcl (Ciprofloxacin Hcl), 1 TAB PO BID Ferrous Sulfate (Ferrous Sulfate), 325 MG PO DAILY, (Reported) Gabapentin (Gabapentin), 400 MG PO TID, (Reported) Lisinopril (Lisinopril), 1 TAB PO DAILY, (Reported) Metformin Hydrochloride (Metformin Hcl), 500 MG PO BID, (Reported) Methenamine Hippurate (Methenamine Hippurate), 1 TAB PO BID, (Reported) Metoprolol Tartrate (Metoprolol Tartrate), 1 TAB PO BID Montelukast Sodium (Montelukast Sodium), 1 TAB PO DAILY, (Reported) Omeprazole (Omeprazole Dr), 1 CAP PO DAILY, (Reported) Scheduled PRN Zolpidem Tartrate (Zolpidem Tartrate), 1 TAB PO QHSP PRN for ANXIETY, (Reported) 36 Discharge Statement: "Patient was advised to return to the ER or call 911 if any headaches, dizziness, shortness of breath, chest pain, abdominal pain, bleeding, fevers, or worsening of medical condition. Patient was counseled about treatment plan, medications, possible side effects, patientverbalized understanding. All questions were answered to the best of my ability. This discharge took greater then 30 minutes in planning, reviewing documentation, counseling the patient, and discussing with other team members." ASSESSMENT ASSESSMENT Assessment Metabolic encephalopathy secondary to complicated cystitis and bradycardia Date of Service: Jul 20, 2025 Billing Provider: KRYSTAL SINGH NP Common Visit Codes: [id number] DISCH DAY >30min KRYSTAL SINGH NP Jul 20, 2025 10:04
== END 2025-07-20 20:50 | disposition home or self-care (01) | DRG 871 ==
LOC: EDBD 20:56 → ER 20:56 → EDUNIT# 20:56 → OVERFLOW 07-16 02:43 → TELE-WESTW 07-16 02:44
PROVIDERS: ADMIT Nurse Practitioner Acute Care; ATTEND Nurse Practitioner Acute Care
PROC: 05HM33Z Insertion of Infusion Device into Right Internal Jugular Vein, Percutaneous Approach (ICD-10-PCS; principal; 2025-07-15)
DX: A41.9 Sepsis, unspecified organism (principal); G82.50 Quadriplegia, unspecified; G92.8 Other toxic encephalopathy; I50.22 Chronic systolic (congestive) heart failure; N12 Tubulo-interstitial nephritis, not specified as acute or chronic; E11.9 Type 2 diabetes mellitus without complications; E78.5 Hyperlipidemia, unspecified; E87.6 Hypokalemia; N30.90 Cystitis, unspecified without hematuria; B95.2 Enterococcus as the cause of diseases classified elsewhere; I11.0 Hypertensive heart disease with heart failure; J45.909 Unspecified asthma, uncomplicated; K21.9 Gastro-esophageal reflux disease without esophagitis; G89.4 Chronic pain syndrome; I44.0 Atrioventricular block, first degree; Z89.612 Acquired absence of left leg above knee; Z89.611 Acquired absence of right leg above knee; Z93.3 Colostomy status; Z88.2 Allergy status to sulfonamides; Z91.018 Allergy to other foods; Z79.84 Long term (current) use of oral hypoglycemic drugs; Z79.82 Long term (current) use of aspirin; Z79.899 Other long term (current) drug therapy; Z89.512 Acquired absence of left leg below knee; Z89.511 Acquired absence of right leg below knee
CPT/HCPCS: 36415; 36556; 70450; 71045; 80048; 80053; 80307; 80320; 81001; 82962; 83605; 83735; 84443; 84484; 85025; 87040; 87086; 87088; 87186; 93005; 93306; 96365; 99291; G0378; J1815; J2185; J2543; J3490